=== PATIENT | female | born 1995 | race Caucasian/White ===

== ENCOUNTER → 2021-09-27 09:45 | Outpatient (BNVA) | payer OTHER, SELFPAY | PROVIDERS: PCP Internal Medicine; Visit Provider Nurse Practitioner Family | DX: M79.18 Myalgia, other site (principal); M47.816 Spondylosis without myelopathy or radiculopathy, lumbar region; M53.3 Sacrococcygeal disorders, not elsewhere classified; M54.2 Cervicalgia | CPT/HCPCS: 99202 ==

== ENCOUNTER → 2021-10-19 10:43 | Outpatient (BNVA) | payer OTHER, SELFPAY | PROVIDERS: PCP Internal Medicine; Visit Provider Nurse Practitioner Family | DX: M79.18 Myalgia, other site (principal); M47.816 Spondylosis without myelopathy or radiculopathy, lumbar region; M53.3 Sacrococcygeal disorders, not elsewhere classified; M54.2 Cervicalgia | CPT/HCPCS: 20553; 99212 ==

== ENCOUNTER → 2021-10-21 13:35 | Outpatient (BNVA) | payer OTHER, SELFPAY | PROVIDERS: Visit Provider Nurse Practitioner Family ==

== ENCOUNTER 2021-11-08 06:03 | Outpatient (REF) | payer OTHER, SELFPAY ==
--- NOTE | ~2021-11-08 | FL_ITS ---
EXAMINATION: XR FLUOROSCOPY WITH IMAGES CLINICAL INFORMATION: Sacrococcygeal disorders, not elsewhere classified. COMPARISON: None. TECHNIQUE: Fluoroscopy performed by Camille Mercado NP Fluoroscopy time: 0.2 minutes DAP: 1.2 Gycm2 Images: 2 FINDINGS: Imaging was performed during SI joint injection. [place] are seen in the region of the SI joint with contrast around the tip of the needle in the periarticular space. Based upon the provided images, I do not see spread of contrast through the joint. FL/FL guidance in treatment room IMPRESSION: Fluoroscopic and spot film guidance during SI joint injection as described above.
== END 2021-11-08 06:04 | disposition home or self-care (01) ==
LOC: HO.RADIR 06:03
PROVIDERS: Visit Provider Anesthesiology
DX: M53.3 Sacrococcygeal disorders, not elsewhere classified (principal); M47.816 Spondylosis without myelopathy or radiculopathy, lumbar region; M79.18 Myalgia, other site
CPT/HCPCS: 27096; J3300; Q9967

== ENCOUNTER → 2024-04-28 14:05 | Outpatient (BNVA) | payer SELFPAY | PROVIDERS: PCP Physician Assistant | DX: Z02.83 Encounter for blood-alcohol and blood-drug test (principal) ==

== ENCOUNTER 2025-05-28 13:46 | Outpatient (AMB) | payer OTHER, SELFPAY ==
[2025-05-28 14:00] VITALS: BP 149/93; PULSE 81; RESP 18; O2SAT 100; BMI 33.8
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
--- OUTSIDE RECORDS SUMMARY | 2025-05-28 15:03 | XMS_ITS | Clinical Summary ---
Author Organization [address] Address [address] [place] [phone] Phone Care Team Providers Care Prototype Machinist Name Role Phone Mayo Marley MD Primary Care Pr ovider Allergies Active Allergy Reactions Criticality Noted Date Comments Diphth,Pertus(Acell),Teta nus 05/20/2024 Rash and a lump over injection site Medications ferrous sulfate 325 mg (65 mg elemental iron) tablet Take 1 tablet by mouth daily. X 1 week then increase bid with meals 022 Active levonorgestreL (MIRENA) 21 mcg/24 hr (8 yrs) 52 mg IUD 1 Each by Intrauterine route Once. 021 2025 Active montelukast (SINGULAIR) 10 mg tablet Take 1 Tablet by mouth at bedtime. 023 Active guanFACINE (TENEX) 1 mg tablet Take 1 tablet (1 mg total) by mouth at bedtime. Active amphetamine-dextr oamphetamine (AdderalL) 10 mg tablet Take 1 tablet (10 mg total) by mouth 2 (two) times a day. Active albuterol HFA (PROAIR HFA ; PROVENTIL HFA ; VENTOLIN HFA) 90 mcg/actuation inhalerIndication s:Mild intermittent asthma without complication Inhale 2 puffs by mouth every 4 (four) hours if needed for wheezing or shortness of breath (cough). 6.7 g 2 025 Active levothyroxine (SYNTHROID, LEVOTHROID) 25 mcg tabletIndications :Other specified hypothyroidism Take 1 tablet (25 mcg total) by mouth 1 (one) time each day before breakfast. 90 tablet 1 025 Active SUMAtriptan (IMITREX) 50 mg tablet Take 1 tablet (50 mg total) by mouth 1 (one) time if needed for migraine. May repeat dose once in 2 hours if no relief. Do not exceed 2 doses in 24 hours. 12 tablet 1 025 Active cyclobenzaprine (FLEXERIL) 5 mg tablet Take 1 tablet (5 mg total) by mouth at bedtime as needed for muscle spasms. 30 tablet 025 2024 Active meloxicam (MOBIC) 7.5 mg tablet Take 1 tablet (7.5 mg total) by mouth 1 (one) time each day if needed for moderate pain. 30 each 025 2024 Active omeprazole (PriLOSEC) [address] capsule Take 1 capsule (40 mg total) by mouth 1 (one) time each day. Do not crush or chew. 90 capsule 1 025 Active omeprazole (PriLOSEC) [address] capsule Take 1 Capsule by mouth every morning (before breakfast). 023 2024 Discontinued ondansetron ODT (ZOFRAN-ODT) 4 mg disintegrating tablet Take 1 tablet (4 mg total) by mouth every 8 (eight) hours if needed for nausea. for nausea 20 tablet 1 025 2024 Active Problems Problem Noted Date Diagnosed Date Asthma 01/08/2025 Other specified attention de ficit hyperactivity disorder (ADHD) 01/08/2025 Migraine without status migrainosus, not intract able 07/12/2023 Hypothyroidism 04/06/2021 Iron deficiency anemia due to chronic blood loss 12/30/2020 Inflamed external hemorrhoid 11/22/2020 Overview (06/25/2024): Last Assessment & Plan: Treat constipation with Colace twice daily, Miralax- 1-2 times per day until soft stools To take down inflammation- Milk of magnesium- soak cotton balls and apply to the area twice daily, Soak in warm water and baking soda twice daily, Take ibuprofen or Tylenol Tucks pads to the area to soothe Return if not improving or worsening to ensure no abscess underlying. Heavy menses due to IUD ([facility]/HCC V24) 11/18/2020 Overview (06/25/2024): Symptomatic anemia Hgb 11/16 6.7 Transfused 1u [facility]BCs at Infusion Center 11/17 Insomnia 12/08/2015 Anxiety 11/21/2014 Encounters Date Type Department Care Team Description 05/01/2025 2:00 PM EDT Office Visit Adult Medicine [address] [phone] Mayo Marley MD Left wrist pain (Primary Dx); Neuropathy; Chronic midline low back pain without sciatica 04/27/2025 Telephone Adult Medicine [address] [phone] Mayo Marley MD 04/24/2025 Telephone Adult Medicine [address] [phone] Mayo Marley MD from Last 3 Months Immunizations Name Administration Dates Next Due DTaP (Infanrix) 6wks to less than 7yo ,01/22/1995,03/24/1994,12/23,1993 [id number]-MDL-EDV (Pentacel) 2mo to less than 5yo 12/23/1997,03/24/1995,03/24/1994,10/25 HPV, Quadrivalent 05/03/2012, 8,07/02/2007,04/23 Hepatitis B (Zhxiyuc-K-Jqpkl , Recombivax HB-Adult) 19yo and older 08/06/2024,03/05/2024,01/30/2024,07/13,05/03/2012 Hepatitis B Pediatric (Enger ix B; Recombivax HB) to less than 20 yo 03/24/1994,1993,1993 IPV Inactivated polio (Ipol) 6wks and older 03/24/1998,01/22/1995,03/24/1994,12/23,1993 Influenza Quadravalent, MDCK , 0.5ml, preservative free (Flucelvax) 6mo and older 06/11/2023,06/23/2020,10/22/2019 Influenza trivalent, with pr eservative (Fluzone; Afluria) 6mo and older 2014 MMR, measles mumps and rubel la Live (Priorix; M-M-R II) 12mo and older 07/13/2016,05/03/2012,03/24/1998,11/22 Meningococcal MCV4P 10/28/2008 PPD Test 11/11/2014 Pfizer (ages 12 & older) Biv alent, COVID-19 01/16/2024 Td Tetanus diptheria (Tdvax) 7yo and older 10/22/2019 Tdap Tetanus diptheria acell ular pertussis (Boostrix; Adacel) 7yo and older 05/14/2024,10/28/2008 Varicella live (Varivax) 12m o and older 02/10/2011,03/24/1997 Surgical History Surgery Date Site/Laterality Comments WISDOM TOOTH EXTRACTION PROCEDURE: HISTORICAL WISDOM TEETH EXTRACTION Medical History Medical History Date Comments Back pain DX:Back pain Anxiety 11/21/2014 DX:Anxiety Hypothyroid DX:Hypothyroid Anemia DX:Anemia Family History Medical History Relation Name Comments Diabetes Maternal Grandmother ovarian cancer Asthma Mother ? cancer Diabetes Paternal Grandmother Breast cancer Neg Hx Cervical cancer Neg Hx Uterine cancer Neg Hx Relation Name Status Comments Brother 1 Alive Brother 2 Alive Father Alive Maternal Grandmother Mother Alive Paternal Grandmother Sister 1 Alive sever 1/2 sibs Sister 2 Alive Social History Tobacco Use Types Packs/Day Years Used Date Smoking Tobacco: Never Smokeless Tobacco: Never Tobacco Cessation:Counseling Given: Not Answered Alcohol Use Standard Drinks/Week Comments Yes 0 (1 standard drink = 0.6 oz pur e alcohol) Housing Instability Answer Date Recorde d Are you worried that in the next 2 months you may not have stable housing? Patient declined 01/08/2025 Food Access & Nutrition Answer Date Rec orded Do you have access to a vari ety of food including fruits and vegetables? Patient declined 01/08/2025 Health Literacy Answer Date Recorded How often do you need to hav e someone help you when you read instructions, pamphlets, or other written material from your doctor or pharmacy? Patient declined 01/08/2025 Caregiver: How often do you need to have someone help you when you read instructions, pamphlets, or other written material from your doctor or pharmacy? Not on file 025 Financial Risk Answer Date Recorded How hard is it for you to pa y for the very basics like food, housing, medical care, and air conditioning / heating? Patient declined 01/08/2025 Transportation Answer Date Recorded Has the lack of transportati on kept you from meetings, work, or from getting things needed for daily living? Patient declined 01/08/2025 Has the lack of transportati on kept you from medical appointments or from getting medications? Patient declined 01/08/2025 Social Isolation Answer Date Recorded How often do you feel lonely or isolated from those around you? Patient declined 01/08/2025 Food Risk Answer Date Recorded Within the past 12 months we worried whether our food would run out before we got money to buy more. Never true 01/08/2025 Within the past 12 months th e food we bought just didn't last and we didn't have money to get more. Never true 01/08/2025 Dependent Care Answer Date Recorded Do you need help finding or paying for care for your loved ones. For example, child protection specialist or elderly care for an older adult? Patient declined 01/08/2025 Education Answer Date Recorded Do you think completing more education or training, like finishing a GED, going to college, or learning a trade, would be helpful for you? Patient declined 01/08/2025 Employment and Income Answer Date Recor ded During the last four weeks, have you been actively looking for work? Patient declined 01/08/2025 Living Situation Answer Date Recorded What is your living situation? 0 01/08/2025 Comments Unknown Sex and Gender Information Value Date Recorded Sex Assigned at Not on file Legal Sex Female 4:54 AM EST Gender Identity Not on file Sexual Orientation Not on file Obstetrics History Last Filed Vital Signs Vital Sign Reading Time Taken Comments Blood Pressure 103/72 05/01/2025 2:19 PM EDT Pulse 82 05/01/2025 2:19 PM EDT Temperature 37.1 C (98.7 F) 05/01/2025 2:19 PM EDT Respiratory Rate 18 05/01/2025 2:19 PM EDT Oxygen Saturation 98% 01/08/2025 12:27 PM EDT Inhaled Oxygen Concentration - - Weight 94.3 kg (208 lb) 05/01/2025 2:19 PM EDT Height 165.1 cm (5' 5 ) 05/01/2025 2:19 PM EDT Body Mass Index 34.61 05/01/2025 2:19 PM EDT Plan of Treatment Upcoming Encounters Date Type Department Care Team (Late st Contact Info) Description 07/14/2025 1:15 PM EDT Office Visit Adult Medicine [address] [phone] Lani Harrison PA [address] [place] [address] Health Maintenance Due Date Last Done Comments Pneumococcal Vaccine: Pediatrics (0 to 5 Years) and At-Risk Patients (6 to 49 Years) (1 of 2 - PCV) 2012 COVID-19 Vaccine (4 - season) 2025 01/16/2024, 09/28/2021, 09/07/2021 Influenza Vaccine (#1) 2025 , 06/11/2023, 06/23/2020, Additional history exists Social Influencers of Health Screening 01/08/2026 01/08/2025 Cervical Cancer Screening: HPV 05/27/2029 05/27/2024 Cholesterol Screening (Lipid Panel) 01/08/2030 01/08/2025, 06/11/2023 DTaP,Tdap,and Td Vaccines (10 - Td or Tdap) 05/14/2034 05/14/2024, 01/17/2020, 10/22/2019, Additional history exists HIB Vaccines Completed 12/23/1997, 09/1997, 03/24/1995, Additional history exists IPV Vaccines Completed 03/24/1998, 09/1997, 03/24/1995, Additional history exists Meningococcal ACWY Vaccine Aged Out 10/28/2008 N o longer eligible based on patient's age to complete this topic Varicella Vaccines Completed 02/10/2011, 03/24/1997 HPV Vaccines Completed 05/03/2012, 10/26, 07/02/2007, Additional history exists MMR Vaccines Completed 07/13/2016, 04/24, 03/24/1998, Additional history exists HIV Screening Completed 04/05/2021 Hepatitis C Screening Completed 04/05/2021 Hepatitis B Vaccines Completed 08/06/2024, 03/05/2024, 01/30/2024, Additional history exists Depression Screening Completed 01/08/2025 Hepatitis A Vaccines Aged Out No long er eligible based on patient's age to complete this topic Meningococcal B Vaccine Aged Out No l onger eligible based on patient's age to complete this topic RSV Immunization Patients Under 20 months Aged Out No longer eligible based on patient's age to complete this topic Procedures Procedure Name Priority Date/Time Associated Diagnosis Comments CREATINE KINASE Routine 05/13/2025 3:23 PM EDT Elevated CK INTERFERON GAMMA INTERPRETATION Routine 05/01/2025 3:30 PM EDT Screening-pulmonary TB INTERFERON GAMMA ANTIGEN 2 Routine 05/01/2025 3:30 PM EDT Screening-pulmonary TB INTERFERON GAMMA ANTIGEN 1 Routine 05/01/2025 3:30 PM EDT Screening-pulmonary TB INTERFERON GAMMA MITOGEN Routine 05/01/2025 3:30 PM EDT Screening-pulmonary TB INTERFERON GAMMA NIL Routine 05/01/2025 3:30 PM EDT Screening-pulmonary TB INTERFERON GAMMA FOR TB, QUALITATIVE Routine 05/01/2025 3:30 PM EDT Screening-pulmonary TB RHEUMATOID FACTOR Routine 05/01/2025 3:3 0 PM EDT Left wrist pain CYCLIC CITRULLINATED PEPTIDE, IGG AND IGA Routine 05/01/2025 3:30 PM EDT Left wrist pain MAGNESIUM Routine 05/01/2025 3:30 PM EDT Left wrist pain CREATINE KINASE Routine 05/01/2025 3:30 PM EDT Left wrist pain VITAMIN B12 Routine 05/01/2025 3:30 PM EDT Neuropathy HELICOBACTER PYLORI BREATH TEST Routine 05/01/2025 3:30 PM EDT Gastroesophageal reflux disease, unspecified whether esophagitis present HEMOGLOBIN A1C Routine 05/01/2025 3:30 PM EDT Neuropathy LIPID PANEL WITH REFLEX TO DIRECT LDL Routine 01/08/2025 1:17 PM EDT Annual physical exam HM HPV Routine 05/27/2024 HM HEPATITIS C SCREENING Routine 04/05/2021 HM HIV SCREENING Routine 04/05/2021 from Last 3 Months or Most Recently Relevant to Health Maintenance Results * Creatine kinase (05/13/2025 3:23 PM EDT) Only the most recent of2 resultswithin the time period is included. Total CK 101 22 - 269 unit/L LAB CHEMISTRY METHOD 05/13/2025 7:04 PM EDT [facility] Blood Venous blood specimen / Unknown Venipuncture / Unknown 05/13/2025 3:23 PM EDT 05/13/2025 3:23 PM EDT us Mayo Marley MD LAB BLOOD ORDERA BLES Final Result [facility] [address] [place] [address], [place] [phone] * Interferon gamma interpretation (05/01/2025 3:30 PM EDT) [facility] Signature Quantiferon Plus Interpretation Negative Negative LAB CHEMISTRY METHOD 05/03/2025 11:48 AM EDT [facility] Blood Venous blood specimen / Unknown Venipuncture / Unknown 05/01/2025 3:30 PM EDT 05/01/2025 3:30 PM EDT Lani CALDERON LAB BLOOD ORDERABLES Final Re sult [facility] [address] [place] [address], [place] [phone] * Interferon gamma antigen 2 (05/01/2025 3:30 PM EDT) Blood Venous blood specimen / Unknown Venipuncture / Unknown 05/01/2025 3:30 PM EDT 05/01/2025 3:30 PM EDT us Lani CALDERON LAB BLOOD ORDERABLES Final Re sult Performing Organization Address City/Va Hospital/ZIP Co de Phone Number [facility] [address] [place] [address], [place] [phone] * Interferon gamma antigen 1 (05/01/2025 3:30 PM EDT) Blood Venous blood specimen / Unknown Venipuncture / Unknown 05/01/2025 3:30 PM EDT 05/01/2025 3:30 PM EDT us Lani CALDERON LAB BLOOD ORDERABLES Final Re sult [facility] [address] [place] [address], [place] [phone] * Interferon gamma mitogen (05/01/2025 3:30 PM EDT) Blood Venous blood specimen / Unknown Venipuncture / Unknown 05/01/2025 3:30 PM EDT 05/01/2025 3:30 PM EDT Lani CALDERON LAB BLOOD ORDERABLES Final Re sult Performing Organization Address [facility] [place] Co de Phone Number [facility] [address] [place] [address], [place] [phone] * Interferon gamma NIL (05/01/2025 3:30 PM EDT) Blood Venous blood specimen / Unknown Venipuncture / Unknown 05/01/2025 3:30 PM EDT 05/01/2025 3:30 PM EDT Lani CALDERON LAB BLOOD ORDERABLES Final Re sult Performing Organization Address [facility] de Phone Number [facility] [address] [place] [address], [place] [phone] * Cyclic citrullinated peptide, IgG and IgA (05/01/2025 3:30 PM EDT) [facility] CCP AB Quant 10 <20 Units LAB CHEMISTRY METHOD 05/05/2025 11:46 AM EDT [facility] Cyclic Citrullinated Peptide (CCP) Antibody Negative Negative LAB CHEMISTRY METHOD 05/05/2025 11:46 AM EDT [facility] Blood Venous blood specimen / Unknown Venipuncture / Unknown 05/01/2025 3:30 PM EDT 05/01/2025 3:30 PM EDT Mayo Marley MD LAB BLOOD ORDERA BLES Final Result Performing Organization Address [facility] Co de Phone Number [facility] [address] [place] [address], [place] [phone] * Helicobacter pylori breath test (05/01/2025 3:30 PM EDT) Pathologist [facility] H Pylori Breath Test Negative Negative LAB CHEMISTRY METHOD 05/02/2025 8:41 AM EDT [facility] Breath Oral cavity structure / Unknown Non-blood Collection / Unknown 05/01/2025 3:30 PM EDT 05/01/2025 3:30 PM EDT Lani CALDERON LAB BODY FLUIDS AND STOOLS OR DERABLES Final Result Performing Organization Address [facility] [place]/[facility]/ZIP Co de Phone Number [facility] [address] [place] [address], [place] [phone] * Rheumatoid factor (05/01/2025 3:30 PM EDT) Rheumatoid Factor <10.0 <15.0 I Unit/mL LAB CHEMISTRY METHOD 05/01/2025 7:00 PM EDT [facility] Blood Venous blood specimen / Unknown Venipuncture / Unknown 05/01/2025 3:30 PM EDT 05/01/2025 3:30 PM EDT Mayo Marley MD LAB BLOOD ORDERA BLES Final Result Performing Organization Address [facility] de Phone Number [facility] [address] [place] [address], [place] [phone] * Magnesium (05/01/2025 3:30 PM EDT) Pathologist [facility] Magnesium 2.2 1.9 - 2.6 mg/dL LAB CHEMISTRY METHOD 05/01/2025 7:00 PM EDT [facility] Blood Venous blood specimen / Unknown Venipuncture / Unknown 05/01/2025 3:30 PM EDT 05/01/2025 3:30 PM EDT Mayo Marley MD LAB BLOOD ORDERA BLES Final Result Performing Organization Address [facility] [place]/[facility]/ZIP Co de Phone Number [facility] [address] [place] [address], [place] [phone] * Hemoglobin A1c (05/01/2025 3:30 PM EDT) [facility] Hemoglobin A1C 5.3 <6.5 % LAB CHEMISTRY METHOD 05/01/2025 9:50 PM EDT [facility] Mean Bld Glu Estim. 105 mg/dL LAB CHEMISTRY METHOD 05/01/2025 9:50 PM EDT [facility] Blood Venous blood specimen / Unknown Venipuncture / Unknown 05/01/2025 3:30 PM EDT 05/01/2025 3:30 PM EDT Mayo Marley MD LAB BLOOD ORDERA BLES Final Result Performing Organization Address City/[facility] Hospital/ZIP Co de Phone Number [facility] [address] [place] [address], [place] [phone] * Vitamin B12 (05/01/2025 3:30 PM EDT) [facility] Vitamin B-12 405 250 - 900 pcg/mL LAB CHEMISTRY METHOD 05/01/2025 7:24 PM EDT [facility] Blood Venous blood specimen / Unknown Venipuncture / Unknown 05/01/2025 3:30 PM EDT 05/01/2025 3:30 PM EDT Mayo Marley MD LAB BLOOD ORDERA BLES Final Result [facility] [address] [place] [address], [place] [phone] * Lipid panel with reflex to direct LDL (01/08/2025 1:17 PM EDT) [facility] Cholesterol 164 0 - 200 mg/dL LAB CHEMISTRY METHOD 01/08/2025 5:43 PM EDT [facility] Triglycerides 64 0 - 150 mg/dL LAB CHEMISTRY METHOD 01/08/2025 5:43 PM EDT [facility] HDL 53 >=40 mg/dL LAB CHEMISTRY METHOD 01/08/2025 5:43 PM EDT [facility] LDL Calculated 98 0 - 100 mg/dL LAB CHEMISTRY METHOD 01/08/2025 5:43 PM EDT [facility] VLDL Cholesterol Nakul 12.8 mg/dL LAB CHEMISTRY METHOD 01/08/2025 5:43 PM EDT [facility] Non HDL Chol. (LDL+VLDL) 111 <145 mg/dL LAB CHEMISTRY METHOD 01/08/2025 5:43 PM EDT [facility] Chol/HDL Ratio 3.1 0.0 - 4.4 LAB CHEMISTRY METHOD 01/08/2025 5:43 PM EDT [facility] Blood Venous blood specimen / Unknown Venipuncture / Unknown 01/08/2025 1:17 PM EDT 01/08/2025 1:17 PM EDT Lani CALDERON LAB BLOOD ORDERABLES Final Re sult [facility] [address] [place] [address], [place] [phone] * Cervical Cancer Screening: HPV (05/27/2024) [facility] Cervical Cancer Screening: HPV positive,a bstracted Historical Provider HEALTH MAINTENANCE Final Result * HIV Screening (04/05/2021) [facility] HIV Screening abstracted Historical Provider HEALTH MAINTENANCE Final Result * Hepatitis C Screening (04/05/2021) [facility] Hepatitis C Screening abstracted Historical Provider HEALTH MAINTENANCE Final Result from Last 3 Months or Most Recently Relevant to Health Maintenance Insurance [facility] Care Teams Prototype Machinist Relationship Specialty Start Date End Date Mayo Marley MD [address] [facility] [place] PCP - General Internal Medicine 05/09/22
--- OUTSIDE RECORDS SUMMARY | 2025-05-28 15:03 | XMS_ITS ---
Author Name [facility] Organization Unknown Care Team Organization Name Specialty Phone Email Start Date End Da te [facility] RACHID GRAHAM [email or web address] 07/24/2023 4 [facility] Aiyana Wilsonmed DO Primary Care 11/29/202204/24 4 [facility] NULL Primary Care 08/01/2022 4
--- OUTSIDE RECORDS SUMMARY | 2025-05-28 15:03 | XMS_ITS | Clinical Summary ---
Author Organization [facility] Address [address] [place] [address] Care Team Providers Care Marine Electrician Name Role Phone Mayo Marley MD Primary Care Pr ovider Allergies No known active allergies Medications Medication Sig Dispensed Refills Start Date End Date Status levothyroxine (SYNTHROID) tablet 25 mcg Take 1 tablet (25 mcg total) by mouth every morning on an empty stomach. 0 Active naproxen (NAPROSYN) 500 MG tablet Take 1 tablet (500 mg total) by mouth 2 (two) times a day with meals. 0 Active omeprazole (PriLOSEC) 20 MG capsule Take 1 capsule (20 mg total) by mouth daily. 0 Active levonorgestrel (MIRENA) 20 MCG/DAY IUD 1 each by Intrauterine route once. 0 Active ferrous sulfate 325 (65 FE) MG tablet Take 1 tablet (325 mg total) by mouth every morning with breakfast. 0 Active Active Problems Problem Noted Date Diagnosed Date Iron deficiency anemia due to chronic blood loss 12/04/2022 Social History Tobacco Use Types Packs/Day Years Used Date Smoking Tobacco: Never Assessed Sex and Gender Information Value Date Recorded Sex Assigned at Not on file Gender Identity Not on file Sexual Orientation Not on file Job Start Date Occupation Industry Not on file Not on file Not on file Last Filed Vital Signs Vital Sign Reading Time Taken Comments Blood Pressure 126/79 12/04/2022 11:35 AM EDT Pulse 79 12/04/2022 11:35 AM EDT Temperature 36.8 C (98.2 F) 12/04/2022 11:35 AM EDT Respiratory Rate - - Oxygen Saturation 100% 12/04/2022 11:35 AM EDT Inhaled Oxygen Concentration - - Weight 93.3 kg (205 lb 9.6 oz) 12/04/2022 11:35 AM EDT Height 165.1 cm (5' 5 ) 12/04/2022 11:35 AM EDT Body Mass Index 34.21 12/04/2022 11:35 AM EDT Plan of Treatment Health Maintenance Due Date Last Done Comments Hepatitis C Screening 1993 COVID-19 Vaccine (#1) 02/08/1994 Depression Screening 2005 Preventative Health Evaluation 2011 Cervical Cancer Screening (Pap Smear) 2014 Influenza Vaccine (#1) 2025 0, 10/22/2019, 2014 DTap / Tdap / Td (8 - Td or Tdap) 10/22/2029 10/22/2019, 10/28/2008, 03/24/1998, Additional history exists Hepatitis B Vaccines Completed 03/24/1994, 1993, 1993 Pneumococcal Vaccine Aged Out No long er eligible based on patient's age to complete this topic RSV Ped < 20 months Aged Out No longe r eligible based on patient's age to complete this topic Care Teams Marine Electrician Relationship Specialty Start Date End Date Mayo Marley MD [address] [place] [address] PCP - General 07/05/22
--- OUTSIDE RECORDS SUMMARY | 2025-05-28 15:03 | XMS_ITS | Clinical Summary ---
Author Organization [employer] Address [address] [facility] [address] [place] [address] Care Team Providers Care Regional Director Of Finance Name Role Phone Unavailable Primary Care Provider Unavailabl e Social History Tobacco Use Types Packs/Day Years Used Date Smoking Tobacco: Never Assessed Comments Unknown Sex and Gender Information Value Date Recorded Sex Assigned at Female 07/24/2022 10:15 AM EDT Legal Sex Female 10:15 AM EDT Gender Identity Not on file Sexual Orientation Not on file Plan of Treatment Health Maintenance Due Date Last Done Comments Depression Screening 1993 Disability Screening 1993 Alcohol/Substance Use Screening 2005 Tobacco Screening 2005 Family Planning (PISQ) 2008 HPV Vaccines (1 - 3-dose series) 2008 DTaP/Tdap/Td Vaccines (1 - Tdap) 2012 Hepatitis B Vaccines (1 of 3 - 19+ 3-dose series) 2012 Pap Smear 2014 Cervical Cancer Screening 2023 HPV/Cotest 2023 COVID-19 Vaccine (1 - 2023-2 5 season) 2024 Influenza Vaccine (#1) 2025 Zoster Vaccines (1 of 2) 2043 RSV Patients and Pa tients Aged 60 years or older (1 - 1-dose 75+ series) 2068 HIB Vaccines Aged Out No longer eligi ble based on patient's age to complete this topic Hepatitis A Vaccines Aged Out No long er eligible based on patient's age to complete this topic IPV Vaccines Aged Out No longer eligi ble based on patient's age to complete this topic Meningococcal B Vaccine Aged Out No l onger eligible based on patient's age to complete this topic Meningococcal Vaccine Aged Out No tiffani brandon eligible based on patient's age to complete this topic Pneumococcal Vaccine: Pediat rics (0 to 5 Years) and At-Risk Patients (6 to 49) Years Aged Out No longer eligible b ased on patient's age to complete this topic RSV under 20 months Aged Out No longe r eligible based on patient's age to complete this topic Rotavirus Vaccines Aged Out No longer eligible based on patient's age to complete this topic
--- OUTSIDE RECORDS SUMMARY | 2025-05-28 15:03 | XMS_ITS | Encounter Summary ---
Author Organization [employer] [facility] Address [address] [facility] [address] [place] [address] Care Team Providers Care Trampoline Team Coach Name Role Phone Unavailable Primary Care Provider Unavailabl e Encounter Details Date Type Department Care Team (Latest Contact Info) Description 11/18/2019 Abstract C CONVERSIONS Dental, Provider, DDS Social History Tobacco Use Types Packs/Day Years Used Date Smoking Tobacco: Never Assessed Comments Unknown Sex and Gender Information Value Date Recorded Sex Assigned at Female 07/24/2022 10:15 AM EDT Legal Sex Female 10:15 AM EDT Gender Identity Not on file Sexual Orientation Not on file documented as of this encounter Plan of Treatment Not on file documented as of this encounter Visit Diagnoses Not on filedocumented in this encounter
== END 2025-05-28 14:40 | disposition home or self-care (01) ==
LOC: HO.PMC 13:47
PROVIDERS: PCP Family Medicine; Referring Provider Family Medicine; Visit Provider Anesthesiology
DX: M47.812 Spondylosis without myelopathy or radiculopathy, cervical region (principal); M46.1 Sacroiliitis, not elsewhere classified; M99.04 Segmental and somatic dysfunction of sacral region; M54.2 Cervicalgia
CPT/HCPCS: 99203

== ENCOUNTER → 2025-05-28 13:46 | Outpatient (BNVA) | payer OTHER, SELFPAY | PROVIDERS: PCP Family Medicine; Referring Provider Family Medicine; Visit Provider Anesthesiology | DX: M54.2 Cervicalgia (principal); M47.812 Spondylosis without myelopathy or radiculopathy, cervical region; M46.1 Sacroiliitis, not elsewhere classified; M99.04 Segmental and somatic dysfunction of sacral region | CPT/HCPCS: 99202 ==

== ENCOUNTER 2025-06-16 08:54 | Outpatient (AMB) | payer OTHER, SELFPAY ==
[2025-06-16 09:04] VITALS: BP 124/78; PULSE 76; RESP 16; O2SAT 98; BMI 34.1
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
--- OUTSIDE RECORDS SUMMARY | 2025-06-16 10:09 | XMS_ITS | Clinical Summary ---
Author Organization [address] Address [address] [place] [phone] Phone Care Team Providers Care Nurse Ldr Name Role Phone Mayo Marley MD Primary [...] 24 hours. 12 tablet 1 025 Active omeprazole (PriLOSEC) [address] capsule Take 1 capsule (40 mg total) by mouth 1 (one) time each day. Do not crush or chew. 90 capsule 1 025 Active meloxicam (MOBIC) 7.5 mg tablet TAKE 1 TABLET (7.5 MG TOTAL) BY MOUTH 1 (ONE) TIME EACH DAY IF NEEDED FOR MODERATE PAIN. 30 tablet 025 2024 Active cyclobenzaprine (FLEXERIL) 5 mg tablet TAKE 1 TABLET BY MOUTH AT BEDTIME NEEDED FOR MUSCLE SPASMS. 30 tablet 025 Active cyclobenzaprine (FLEXERIL) 5 mg tablet Take 1 tablet (5 mg total) by mouth at bedtime as needed for muscle spasms. 30 tablet 025 2024 Discontinued meloxicam (MOBIC) 7.5 mg tablet Take 1 tablet (7.5 mg total) by mouth 1 (one) time each day if needed for moderate pain. 30 each 025 2024 Discontinued Active Problems Problem Noted Date Diagnosed Date [...] abscess underlying. Heavy menses due to IUD ([facility] V24) 11/18/2020 Overview (06/25/2024): Symptomatic anemia Hgb 11/16 6.7 Transfused 1u PRBCs at Infusion Center 11/17 Insomnia 12/08/2015 Anxiety 11/21/2014 Encounters Date Type Department Care Team Description 06/09/2025 Telephone Adult Medicine [address] [phone] Mayo Marley MD 05/01/2025 2:00 PM EDT Office Visit Adult Medicine [address] [phone] Mayo Marley MD Left wrist pain (Primary Dx); Neuropathy; Chronic midline low back pain without sciatica 04/27/2025 Telephone Adult Medicine [address] [phone] Mayo Marley MD 04/24/2025 Telephone Adult Medicine [address] [phone] Mayo aMrley MD from Last 3 Months Immunizations Name Administration Dates Next Due DTaP (Infanrix) 6wks to less than 7yo ,01/22/1995,03/24/1994,12/23,1993 BBaO-CIS-VGS (Pentacel) 2mo to less than 5yo 12/23/1997,03/24/1995,03/24/1994,10/25 HPV, Quadrivalent 05/03/2012, 8,07/02/2007,04/23 Hepatitis B (Vucxhkb-G-Uaphz , Recombivax HB-Adult) 19yo and older 08/06/2024,03/05/2024,01/30/2024,07/13,05/03/2012 [...] for your loved ones. For example, child life therapist or elderly care for an older adult? [...] 1:15 PM EDT Office Visit Adult Medicine [address] [phone] Lani Harrison PA [address] [place] [address] Health Maintenance Due Date Last Done Comments Pneumococcal Vaccine: Pediatrics (0 to 5 Years) and At-Risk Patients (6 to 49 Years) (1 of 2 - PCV) 2012 COVID-19 Vaccine ( season) 2025 01/16/2024, 09/28/2021, 09/07/2021 Influenza Vaccine (#1) 2025 , 06/11/2023, 06/23/2020, Additional history exists Social Influencers of Health Screening 01/08/2026 01/08/2025 Cervical Cancer Screening: HPV 05/27/2029 05/27/2024 Cholesterol Screening (Lipid Panel) 01/08/2030 01/08/2025, 06/11/2023 DTaP,Tdap,and Td Vaccines (10 - Td or Tdap) 05/14/2034 05/14/2024, 01/17/2020, 10/22/2019, Additional history exists RSV Immunization Adult Patients (1 - 1-dose 75+ series) 2068 HIB Vaccines Completed 12/23/1997, 09/1997, 03/24/1995, Additional [...] Routine 05/13/2025 3:23 PM EDT Elevated CK MYOSITIS MARKER PANEL 3 Routine 05/13/2025 3:23 PM EDT Elevated CK [...] Recently Relevant to Health Maintenance Results * (ABNORMAL) Myositis panel 3 (05/13/2025 3:23 PM EDT) Nimo-1 Ab <20 <20 Units 06/04/2025 8:[address] [facility] [address]-7 Ab Negative Negative 06/04/2025 8:10 PM EDT [facility] Comment: This test was developed and its performance characteristics determined by [facility]. It has not been cleared or approved by the Food and Drug Administration. PL-12 Ab Negative Negative 06/04/2025 8:10 PM EDT [facility] Comment: This test was developed and its performance characteristics determined by [facility]. It has not been cleared or approved by the Food and Drug Administration. Ej Ab Negative Negative 06/04/2025 8:10 PM EDT [facility] Comment: This test was developed and its performance characteristics determined by [facility]. It has not been cleared or approved by the Food and Drug Administration. Oj Ab Negative Negative 06/04/2025 8:10 PM EDT [facility] Comment: This test was developed and its performance characteristics determined by [facility]. It has not been cleared or approved by the Food and Drug Administration. SRP Ab Negative Negative 06/04/2025 8:10 PM EDT [facility] Comment: This test was developed and its performance characteristics determined by [facility]. It has not been cleared or approved by the Food and Drug Administration. MO-2 Ab Weak Positive(A) Negative 06/04/2025 8:10 PM EDT [facility] Comment: This test was developed and its performance characteristics determined by [facility]. It has not been cleared or approved by the Food and Drug Administration. TIF1 Gamma (P155/140) Ab <20 <20 Units 06/04/2025 8:10 PM EDT [facility] Comment: This test was developed and its performance characteristics determined by [facility]. It has not been cleared or approved by the Food and Drug Administration. MDA-5 (P140)(CADM-140) Ab <20 <20 Units 06/04/2025 8:10 PM EDT [facility] Comment: This test was developed and its performance characteristics determined by [facility]. It has not been cleared or approved by the Food and Drug Administration. NXP-2 (P140) Ab <20 <20 Units 8:10 PM EDT [facility] Comment: This test was developed and its performance characteristics determined by [facility]. It has not been cleared or approved by the Food and Drug Administration. Anti-PM/Scl-100 Ab <20 <20 Units 2024 8:10 PM EDT [facility] Comment: This test was developed and its performance characteristics determined by [facility]. It has not been cleared or approved by the Food and Drug Administration. U2 snRNP Ab Negative Negative 06/04/2025 8:10 PM EDT [facility] Comment: This test was developed and its performance characteristics determined by [facility]. It has not been cleared or approved by the Food and Drug Administration. Anti-U1-JAVA SOFTWARE ENGINEER Ab <20 <20 Units 06/04/2025 8:10 PM EDT [facility] Ku Ab Negative Negative 06/04/2025 8:10 PM EDT [facility] Comment: This test was developed and its performance characteristics determined by [facility]. It has not been cleared or approved by the Food and Drug Administration. Anti-SS-A 52 kD Ab, IgG <20 <20 Units 06/04/2025 8:10 PM EDT [facility] Comment: This test was developed and its performance characteristics determined by [facility]. It has not been cleared or approved by the Food and Drug Administration. Fibrillarin (U3 JAVA SOFTWARE ENGINEER) Ab Negative Negative 06/04/2025 8:10 PM EDT [facility] Comment: This test was developed and its performance characteristics determined by [facility]. It has not been cleared or approved by the Food and Drug Administration. Interpretation for Anti-Nimo-1, Vscs-TNA-0yeqkb, Anti-MDA-5, Anti-NXP-2, Anti-PM/Scl-100, Anti-SS-A 52 kD, Anti-U1 JAVA SOFTWARE ENGINEER: Negative: <20 Weak Positive: 20 - 39 Moderate Positive: 40 - 80 Strong Positive: >80 . Test Performed by: [facility] [address] [place] [address] Blood Venous blood specimen / Unknown Venipuncture / Unknown 05/13/2025 3:23 PM EDT 05/13/2025 3:23 PM EDT us Mayo Marley MD LAB BLOOD ORDERA BLES Final Result [facility] [address] [place] [address] * Creatine kinase (05/13/2025 3:23 PM EDT) Only the most recent of2 resultswithin the time period is included. Total CK 101 22 - 269 unit/L LAB CHEMISTRY METHOD 05/13/2025 7:04 PM EDT [facility] Blood Venous blood specimen / Unknown Venipuncture / Unknown 05/13/2025 3:23 PM EDT 05/13/2025 3:23 PM EDT Mayo Marley MD LAB BLOOD ORDERA BLES Final Result Performing Organization Address [facility]/ZIP Co de Phone Number [facility] [address] [place] [address], [place] [phone] * Interferon gamma interpretation (05/01/2025 3:30 PM EDT) [facility] Quantiferon Plus Interpretation Negative Negative LAB CHEMISTRY METHOD 05/03/2025 11:48 AM EDT [facility] Blood Venous blood specimen / Unknown Venipuncture / Unknown 05/01/2025 3:30 PM EDT 05/01/2025 3:30 PM EDT us Lani CALDERON LAB BLOOD ORDERABLES Final Re sult Performing Organization Address [facility]/ZIP Co de Phone Number [facility] [address] [place] [address], [place] [phone] * Interferon gamma antigen 2 (05/01/2025 3:30 PM EDT) Blood Venous blood specimen / Unknown Venipuncture / Unknown 05/01/2025 3:30 PM EDT 05/01/2025 3:30 PM EDT us Lani CALDERON LAB BLOOD ORDERABLES Final Re sult Performing Organization Address City/[facility]/ZIP Co de Phone Number [facility] [address] [place] [address], [place] [phone] * Interferon gamma antigen 1 (05/01/2025 3:30 PM EDT) Blood Venous blood specimen / Unknown Venipuncture / Unknown 05/01/2025 3:30 PM EDT 05/01/2025 3:30 PM EDT us Lani CALDERON LAB BLOOD ORDERABLES Final Re sult Performing Organization Address [facility] Co de Phone Number [facility] [address] [place] [address], * Interferon gamma mitogen (05/01/2025 3:30 PM EDT) Blood Venous blood specimen / Unknown Venipuncture / Unknown 05/01/2025 3:30 PM EDT 05/01/2025 3:30 PM EDT us Lani CALDERON LAB BLOOD ORDERABLES Final Re sult Performing Organization Address [facility] Co de Phone Number [facility] [address] [place] [address], * Interferon gamma NIL (05/01/2025 3:30 PM EDT) Blood Venous blood specimen / Unknown Venipuncture / Unknown 05/01/2025 3:30 PM EDT 05/01/2025 3:30 PM EDT us Lani CALDERON LAB BLOOD ORDERABLES Final Re sult Performing Organization Address [facility] de Phone Number [facility] [address] [place] [address], * Cyclic citrullinated peptide, IgG and IgA (05/01/2025 3:30 PM EDT) CCP AB Quant 10 <20 Units LAB CHEMISTRY METHOD 05/05/2025 11:46 AM EDT [facility] Cyclic Citrullinated Peptide (CCP) Antibody Negative Negative LAB CHEMISTRY METHOD 05/05/2025 11:46 AM EDT [facility] Blood Venous blood specimen / Unknown Venipuncture / Unknown 05/01/2025 3:30 PM EDT 05/01/2025 3:30 PM EDT Mayo Marley MD LAB BLOOD ORDERA BLES Final Result Performing Organization Address [facility]/ZIP Co de Phone Number [facility] [address] [place] [address], [place] [phone] * Helicobacter pylori breath test (05/01/2025 3:30 PM EDT) [facility] H Pylori Breath Test Negative Negative LAB CHEMISTRY METHOD 05/02/2025 8:41 AM EDT [facility] Breath Oral cavity structure / Unknown Non-blood Collection / Unknown 05/01/2025 3:30 PM EDT 05/01/2025 3:30 PM EDT L[facility] BODY FLUIDS AND STOOLS OR DERABLES Final Result Performing Organization Address [facility] Co de Phone Number [facility] [address] [place] [address], [place] [phone] * Rheumatoid factor (05/01/2025 3:30 PM EDT) [facility] Rheumatoid Factor <10.0 <15.0 I Unit/mL LAB CHEMISTRY METHOD 05/01/2025 7:00 PM EDT [facility] Blood Venous blood specimen / Unknown Venipuncture / Unknown 05/01/2025 3:30 PM EDT 05/01/2025 3:30 PM EDT Mayo Marley MD LAB BLOOD ORDERA BLES Final Result Performing Organization Address City/[facility]/ZIP Co de Phone Number [facility] [address] [place] [address], [place] [phone] * Magnesium (05/01/2025 3:30 PM EDT) [facility] Magnesium 2.2 1.9 - 2.6 mg/dL LAB CHEMISTRY METHOD 05/01/2025 7:00 PM EDT [facility] Blood Venous blood specimen / Unknown Venipuncture / Unknown 05/01/2025 3:30 PM EDT 05/01/2025 3:30 PM EDT Mayo Marley MD LAB BLOOD ORDERA BLES Final Result Performing Organization Address [facility]/ZIP Co de Phone Number [facility] [address] [place] [address], [place] [phone] * Hemoglobin A1c (05/01/2025 3:30 PM EDT) [facility] Hemoglobin A1C 5.3 <6.5 % LAB CHEMISTRY METHOD 05/01/2025 9:50 PM EDT [facility] Mean Bld Glu Estim. 105 mg/dL LAB CHEMISTRY METHOD 05/01/2025 9:50 PM EDT [facility] Blood Venous blood specimen / Unknown Venipuncture / Unknown 05/01/2025 3:30 PM EDT 05/01/2025 3:30 PM EDT Mayo Marley MD LAB BLOOD ORDERA BLES Final Result [facility] [address] [place] [address], [place] [phone] * Vitamin B12 (05/01/2025 3:30 PM EDT) [facility] Vitamin B-12 405 250 - 900 pcg/mL LAB CHEMISTRY METHOD 05/01/2025 7:24 PM EDT [facility] Blood Venous blood specimen / Unknown Venipuncture / Unknown 05/01/2025 3:30 PM EDT 05/01/2025 3:30 PM EDT Mayo Marley MD LAB BLOOD ORDERA BLES Final Result [facility] [address] [place] [address], [place] [phone] * Lipid panel with reflex to direct LDL (01/08/2025 1:17 PM EDT) Cholesterol 164 0 - 200 mg/dL LAB CHEMISTRY METHOD 01/08/2025 5:43 PM EDT [facility] Triglycerides 64 0 - 150 mg/dL LAB CHEMISTRY METHOD 01/08/2025 5:43 PM EDT [facility] HDL 53 >=40 mg/dL LAB CHEMISTRY METHOD 01/08/2025 5:43 PM EDT [facility] LDL Calculated 98 0 - 100 mg/dL LAB CHEMISTRY METHOD 01/08/2025 5:43 PM EDT [facility] VLDL Cholesterol Nakul 12.8 mg/dL LAB CHEMISTRY METHOD 01/08/2025 5:43 PM EDT [facility] Non HDL Chol. (LDL+VLDL) 111 <145 mg/dL LAB CHEMISTRY METHOD 01/08/2025 5:43 PM EDT [facility] Chol/HDL Ratio 3.1 0.0 - 4.4 LAB CHEMISTRY METHOD 01/08/2025 5:43 PM EDT [facility] Blood Venous blood specimen / Unknown Venipuncture / Unknown 01/08/2025 1:17 PM EDT 01/08/2025 1:17 PM EDT Lani CALDERON LAB BLOOD ORDERABLES Final Re sult [facility] [address] [place] [address], [place] [phone] * Hm Cervical Cancer Screening: HPV (05/27/2024) Pathologist [facility] Cervical Cancer Screening: HPV positive,a bstracted Historical Provider HEALTH MAINTENANCE Final Result * HIV Screening (04/05/2021) [facility] HIV Screening abstracted Historical Provider HEALTH MAINTENANCE Final Result * Hepatitis C Screening (04/05/2021) [facility] Hepatitis C Screening abstracted Historical Provider HEALTH MAINTENANCE Final Result from Last 3 Months or Most Recently Relevant to Health Maintenance Insurance [facility] [employer] Care Teams Nurse Ldr Relationship Specialty Start Date End Date Mayo Marley MD [address] [facility], [place] PCP - General Internal Medicine 05/09/22
--- OUTSIDE RECORDS SUMMARY | 2025-06-16 10:09 | XMS_ITS | Clinical Summary ---
Author Organization [facility] Address [address] [place] [address] Care Team Providers Care Psychological Assistant Name Role Phone Mayo Marley MD Primary [...] age to complete this topic Care Teams Psychological Assistant Relationship Specialty Start Date End Date Mayo Marley MD [address] [place] [address] PCP - General 07/05/22
--- OUTSIDE RECORDS SUMMARY | 2025-06-16 10:09 | XMS_ITS | Clinical Summary ---
Author Organization [employer] Address [address] [place] [address] Care Team Providers Care Vacuum Frame Operator Name Role Phone Unavailable Primary Care Provider [...] COVID-19 Vaccine (1 - 2023-2 5 season) 2025 Influenza Vaccine (#1) 2025 Zoster Vaccines (1 [...]
--- OUTSIDE RECORDS SUMMARY | 2025-06-16 10:09 | XMS_ITS | Encounter Summary ---
Author Organization [facility] Address [address] [place] [address] Care Team Providers Care Hospice Volunteer Coordinator Name Role Phone Unavailable Primary Care Provider [...]
== END 2025-06-16 10:07 | disposition home or self-care (01) ==
LOC: HO.HSM 08:54
PROVIDERS: PCP Family Medicine; Visit Provider Nurse Practitioner
DX: G43.709 Chronic migraine without aura, not intractable, without status migrainosus (principal)
CPT/HCPCS: 99204

== ENCOUNTER → 2025-06-16 08:54 | Outpatient (BNVA) | payer OTHER, SELFPAY | PROVIDERS: PCP Family Medicine; Visit Provider Nurse Practitioner | DX: G43.709 Chronic migraine without aura, not intractable, without status migrainosus (principal) | CPT/HCPCS: 99202 ==

== ENCOUNTER 2025-07-07 06:26 | Outpatient (REF) | payer OTHER, SELFPAY ==
--- NOTE | ~2025-07-07 | FL_ITS ---
EXAMINATION: FL GUIDANCE ONLY HISTORY: M46.1 - Sacroiliitis, not elsewhere classified COMPARISON: None available. TECHNIQUE: Fluoroscopy time: 17.9 seconds. Cumulative Dose: 8.5054 mGy. DAP: 3.6997 Gycm2 Images: 4. FINDINGS: Fluoroscopic spot films of the pelvis demonstrate needles and contrast material in the regions of the bilateral sacroiliac joints. FL/FL guidance in treatment room IMPRESSION: Fluoroscopy during procedure. Please see procedure report for additional information. Electronically signed by: Brian Mast MD 07/07/2025 03:48 PM EDT
--- OUTSIDE RECORDS SUMMARY | 2025-07-07 06:29 | XMS_ITS | Clinical Summary ---
Author Organization [address] Address [address] [place] [phone] Phone Care Team Providers Care Mat Repairer Name Role Phone Mayo Marley MD Primary [...] or chew. 90 capsule 1 025 Active cyclobenzaprine (FLEXERIL) 5 mg tablet TAKE 1 TABLET BY MOUTH AT BEDTIME NEEDED FOR MUSCLE SPASMS. 30 tablet 2 Active meloxicam (MOBIC) 7.5 mg tablet Take 1 tablet (7.5 mg total) by mouth 1 (one) time each day if needed for moderate pain. 30 tablet 2 025 Active meloxicam (MOBIC) 7.5 mg tablet TAKE 1 TABLET (7.5 MG TOTAL) BY MOUTH 1 (ONE) TIME EACH DAY IF NEEDED FOR MODERATE PAIN. 30 tablet 025 2024 Discontinued cyclobenzaprine (FLEXERIL) 5 mg tablet TAKE 1 TABLET BY MOUTH AT BEDTIME NEEDED FOR MUSCLE SPASMS. 30 tablet 025 2024 Discontinued Active Problems Problem Noted [...] abscess underlying. Heavy menses due to IUD ([facility] V24) 11/18/2020 Overview (06/25/2024): Symptomatic anemia Hgb 11/16 6.7 Transfused 1u PRBCs at Infusion Center 11/17 Insomnia 12/08/2015 Anxiety 11/21/2014 Encounters Date Type Department Care Team Description 06/09/2025 Telephone Adult Medicine [address] [phone] Mayo Marley MD 05/01/2025 2:00 PM EDT Office Visit Adult Medicine [address] [phone] Mayo Marley MD Left wrist pain (Primary Dx); Neuropathy; Chronic midline low back pain without sciatica 04/27/2025 Telephone Adult Medicine [address] [phone] Mayo Marley MD 04/24/2025 Telephone Adult Medicine [address] [phone] Mayo Marley MD from Last 3 Months Immunizations Immunization Administration Dates Next Due DTaP (Infanrix) 6wks to less than 7yo ,01/22/1995,03/24/1994,12/23,1993 [id number]-[id number] (Pentacel) 2mo to less than 5yo 12/23/1997,03/24/1995,03/24/1994,10/25 HPV, Quadrivalent 05/03/2012, 8,07/02/2007,04/23 Hepatitis B (Sigfmwt-G-Znesx , Recombivax HB-Adult) 19yo and older 08/06/2024,03/05/2024,01/30/2024,07/13,05/03/2012 [...] for your loved ones. For example, child attendant or elderly care for an older adult? [...] Date Recorded What is your living situation? Unrecognized valu e 01/08/2025 Comments Unknown Sex and Gender Information [...] Team (Late st Contact Info) Description 07/14/2025 1:30 PM EDT Office Visit Adult Medicine [address] [phone] Lani Harrison PA [address] [place] [address] Health Maintenance Due Date Last Done Comments [...] Annual physical exam HM HPV Routine 05/27/2024 HEPATITIS C SCREENING Routine 04/05/2021 HIV SCREENING Routine 04/05/2021 from Last 3 Months or Most Recently Relevant to Health Maintenance Results * (ABNORMAL) Myositis panel 3 (05/13/2025 3:23 PM EDT) Nimo-1 Ab <20 <20 Units 06/04/2025 8:[address] [facility] [address] Ab Negative Negative 06/04/2025 8:10 PM EDT [facility] Comment: This test was developed and its performance characteristics determined by [facility]. It has not been cleared or approved [...] approved by the Food and Drug Administration. ME-2 Ab Weak Positive(A) Negative 06/04/2025 8:10 PM [...] approved by the Food and Drug Administration. Anti-U1-IMAGING AIDE Ab <20 <20 Units 06/04/2025 8:10 PM [...] the Food and Drug Administration. Fibrillarin (U3 IMAGING AIDE) Ab Negative Negative 06/04/2025 8:10 PM EDT [facility] Comment: This test was developed and its performance characteristics determined by [facility]. It has not been cleared or approved by the Food and Drug Administration. Interpretation for Anti-Nimo-1, Hcyb-JBJ-[id number], Anti-MDA-5, Anti-NXP-2, Anti-PM/Scl-100, Anti-SS-A 52 kD, Anti-U1 IMAGING AIDE: Negative: <20 Weak Positive: 20 - 39 Moderate Positive: 40 - 80 Strong Positive: >80 . Test Performed by: [facility] [place] [address] Blood Venous blood specimen / Unknown Venipuncture / Unknown 05/13/2025 3:23 PM EDT 05/13/2025 3:23 PM EDT us Mayo Marley MD LAB BLOOD ORDERA BLES Final Result [facility] [address] [place] [address] * Creatine kinase (05/13/2025 3:23 PM EDT) Only the most recent of2 resultswithin the time period is included. Total CK 101 22 - 269 unit/L LAB CHEMISTRY METHOD 05/13/2025 7:04 PM EDT [facility] Blood Venous blood specimen / Unknown Venipuncture / Unknown 05/13/2025 3:23 PM EDT 05/13/2025 3:23 PM EDT Mayo Marley MD LAB BLOOD ORDERA BLES Final Result Performing Organization Address City/[facility]/ZIP Co de Phone Number [facility] [address] [place] [address], [place] [phone] * Interferon gamma interpretation (05/01/2025 3:30 PM EDT) [facility] Quantiferon Plus Interpretation Negative Negative LAB CHEMISTRY METHOD 05/03/2025 11:48 AM EDT [facility] Blood Venous blood specimen / Unknown Venipuncture / Unknown 05/01/2025 3:30 PM EDT 05/01/2025 3:30 PM EDT us Lani CALDERON LAB BLOOD ORDERABLES Final Re sult Performing Organization Address City[facility]/ZIP Co de Phone Number [facility] [address] [place] [address], [place] [phone] * Interferon gamma antigen 2 (05/01/2025 3:30 PM EDT) Blood Venous blood specimen / Unknown Venipuncture / Unknown 05/01/2025 3:30 PM EDT 05/01/2025 3:30 PM EDT us Lani CALDERON LAB BLOOD ORDERABLES Final Re sult [facility] [address] [place] [address], [place] [phone] * Interferon gamma antigen 1 (05/01/2025 3:30 PM EDT) Blood Venous blood specimen / Unknown Venipuncture / Unknown 05/01/2025 3:30 PM EDT 05/01/2025 3:30 PM EDT us Lani CALDERON LAB BLOOD ORDERABLES Final Re sult Performing Organization Address [facility] Co de Phone Number [facility] [address] [place] [address], * Interferon gamma mitogen (05/01/2025 3:30 PM EDT) Blood Venous blood specimen / Unknown Venipuncture / Unknown 05/01/2025 3:30 PM EDT 05/01/2025 3:30 PM EDT us Lani CALDERON LAB BLOOD ORDERABLES Final Re sult Performing Organization Address [facility] Co de Phone Number [facility] [address] [place] [address], * Interferon gamma NIL (05/01/2025 3:30 PM EDT) Blood Venous blood specimen / Unknown Venipuncture / Unknown 05/01/2025 3:30 PM EDT 05/01/2025 3:30 PM EDT us Lani CALDERON LAB BLOOD ORDERABLES Final Re sult Performing Organization Address [facility] de Phone Number [facility] [address] [place] [address], * Cyclic citrullinated peptide, IgG and IgA (05/01/2025 3:30 PM EDT) CCP AB Quant 10 <20 Units LAB CHEMISTRY METHOD 05/05/2025 11:46 AM EDT [facility] Cyclic Citrullinated Peptide (CCP) Antibody Negative Negative LAB CHEMISTRY METHOD 05/05/2025 11:46 AM EDT [facility] Blood Venous blood specimen / Unknown Venipuncture / Unknown 05/01/2025 3:30 PM EDT 05/01/2025 3:30 PM EDT Mayo Marley MD LAB BLOOD ORDERA BLES Final Result Performing Organization Address [facility]/ZIP Co de Phone Number [facility] [address] [place] [address], [place] [phone] * Helicobacter pylori breath test (05/01/2025 3:30 PM EDT) [facility] H Pylori Breath Test Negative Negative LAB CHEMISTRY METHOD 05/02/2025 8:41 AM EDT [facility] Breath Oral cavity structure / Unknown Non-blood Collection / Unknown 05/01/2025 3:30 PM EDT 05/01/2025 3:30 PM EDT L[facility] BODY FLUIDS AND STOOLS OR DERABLES Final Result Performing Organization Address [facility] Co de Phone Number [facility] [address] [place] [address], [place] [phone] * Rheumatoid factor (05/01/2025 3:30 PM EDT) [facility] Rheumatoid Factor <10.0 <15.0 I Unit/mL LAB CHEMISTRY METHOD 05/01/2025 7:00 PM EDT [facility] Blood Venous blood specimen / Unknown Venipuncture / Unknown 05/01/2025 3:30 PM EDT 05/01/2025 3:30 PM EDT Mayo Marley MD LAB BLOOD ORDERA BLES Final Result Performing Organization Address [facility]/ZIP Co de Phone Number [facility] [address] [place] [address], [place] [phone] * Magnesium (05/01/2025 3:30 PM EDT) [facility] Magnesium 2.2 1.9 - 2.6 mg/dL LAB CHEMISTRY METHOD 05/01/2025 7:00 PM EDT [facility] Blood Venous blood specimen / Unknown Venipuncture / Unknown 05/01/2025 3:30 PM EDT 05/01/2025 3:30 PM EDT Mayo Marley MD LAB BLOOD ORDERA BLES Final Result Performing Organization Address [facility]/ZIP Co de Phone Number [facility] [address] [place] [address], [place] [phone] * Hemoglobin A1c (05/01/2025 3:30 PM EDT) Pathologist [facility] Hemoglobin A1C 5.3 <6.5 % LAB CHEMISTRY METHOD 05/01/2025 9:50 PM EDT [facility] Mean Bld Glu Estim. 105 mg/dL LAB CHEMISTRY METHOD 05/01/2025 9:50 PM EDT [facility] Blood Venous blood specimen / Unknown Venipuncture / Unknown 05/01/2025 3:30 PM EDT 05/01/2025 3:30 PM EDT Mayo Marley MD LAB BLOOD ORDERA BLES Final Result [facility] [address] [place] [address], [place] [phone] * Vitamin B12 (05/01/2025 3:30 PM EDT) Vitamin B-12 405 250 - 900 pcg/mL LAB CHEMISTRY METHOD 05/01/2025 7:24 PM EDT [facility] Blood Venous blood specimen / Unknown Venipuncture / Unknown 05/01/2025 3:30 PM EDT 05/01/2025 3:30 PM EDT us Mayo Marley MD LAB BLOOD ORDERA BLES Final Result [facility] [address] [place] [address], [place] [phone] * Lipid panel with reflex to direct LDL (01/08/2025 1:17 PM EDT) Cholesterol 164 0 - 200 mg/dL LAB CHEMISTRY METHOD 01/08/2025 5:43 PM EDT [facility] Triglycerides 64 0 - 150 mg/dL LAB CHEMISTRY METHOD 01/08/2025 5:43 PM EDT [facility] HDL 53 >=40 mg/dL LAB CHEMISTRY METHOD 01/08/2025 5:43 PM EDT [facility] LDL Calculated 98 0 - 100 mg/dL LAB CHEMISTRY METHOD 01/08/2025 5:43 PM EDT [facility] VLDL Cholesterol Nakul 12.8 mg/dL LAB CHEMISTRY METHOD 01/08/2025 5:43 PM EDT [facility] Non HDL Chol. (LDL+VLDL) 111 <145 mg/dL LAB CHEMISTRY METHOD 01/08/2025 5:43 PM EDT [facility] Chol/HDL Ratio 3.1 0.0 - 4.4 LAB CHEMISTRY METHOD 01/08/2025 5:43 PM EDT [facility] Blood Venous blood specimen / Unknown Venipuncture / Unknown 01/08/2025 1:17 PM EDT 01/08/2025 1:17 PM EDT L[facility] LAB BLOOD ORDERABLES Final Re sult [facility] [address] [place] [address], [place] [phone] * Hm Cervical Cancer Screening: HPV (05/27/2024) [facility] Cervical Cancer Screening: HPV positive,a bstracted Historical Provider HEALTH MAINTENANCE Final Result * HIV Screening (04/05/2021) [facility] HIV Screening abstracted Historical Provider HEALTH MAINTENANCE Final Result * Hepatitis C Screening (04/05/2021) [facility] Hepatitis C Screening abstracted Historical Provider HEALTH MAINTENANCE Final Result from Last 3 Months or Most Recently Relevant to Health Maintenance Insurance [facility] Care Teams Mat Repairer Relationship Specialty Start Date End Date Mayo Marley MD [address] [facility], [place] PCP - General Internal Medicine 05/09/22
--- OUTSIDE RECORDS SUMMARY | 2025-07-07 06:29 | XMS_ITS | Clinical Summary ---
Author Organization [facility] Address [address] [place] [address] Care Team Providers Care Kosher Dietary Service Supervisor Name Role Phone Mayo Marley MD Primary [...] age to complete this topic Care Teams Kosher Dietary Service Supervisor Relationship Specialty Start Date End Date Mayo Marley MD [address] [place] [address] PCP - General 07/05/22
== END 2025-07-07 06:27 | disposition home or self-care (01) ==
LOC: CF 06:26
PROVIDERS: Visit Provider Anesthesiology
DX: M46.1 Sacroiliitis, not elsewhere classified (principal); M53.3 Sacrococcygeal disorders, not elsewhere classified; M99.04 Segmental and somatic dysfunction of sacral region
CPT/HCPCS: 27096; J2003; J2795; J3301; Q9967

== ENCOUNTER 2025-07-07 14:40 | Outpatient (AMB) | payer OTHER, SELFPAY ==
[2025-07-07 14:51] VITALS: BP 131/81; PULSE 103; RESP 16; O2SAT 100; BMI 34.1
--- NOTE | 2025-07-07 14:51 | MHC.OFFVIS ---
Vital Signs 07/07/25 14:51 07/07/25 15:11 Height 5 ft 5 in Weight 205 lb BMI 34.1 BP 131/81 129/80 Blood Pressure Location Lt brachial Lt brachial Position Sitting Sitting Respiration 16 16 Pulse 103 H 95 Pulse Source Pulse Oximeter Pulse Oximeter Pulse Oximetry (%) 100 99 Oxygen Delivery Method Room Air Room Air Intake Visit Reasons: Bilateral Therapeutic SIJ Injections/ Ativan Allergies diphtheria,pertussis (acellular),te (From Boostrix Tdap) Allergy (Unknown, Verified 06/16/25 09:06) Unknown [facility] Medical History (Updated 06/16/25 @ 10:10 by Marsha Renee CNP) ADHD Insomnia Anxiety Iron deficiency Asthma Migraine Social History (Updated 06/12/25 @ 08:09 by Huan Caballero [facility]) Alcohol intake: current Patient Tobacco Use Status: Never used Tobacco Physical Exam Vital Signs: Last Vital Signs Pulse 95 07/07/25 15:11 Resp 16 07/07/25 15:11 BP 129/80 07/07/25 15:11 Pulse Ox 99 07/07/25 15:11 Oxygen Delivery Method Room Air 07/07/25 15:11 BMI result Body Mass Index 34.1 Assessment & Plan Assessment & Plan (1) Sacroiliac joint pain: Code(s): M53.3 - Sacrococcygeal disorders, not elsewhere classified Category: Medical (2) Somatic dysfunction of both sacroiliac joints: Code(s): M99.04 - Segmental and somatic dysfunction of sacral region Category: Medical (3) Sacroiliitis: Code(s): M46.1 - Sacroiliitis, not elsewhere classified Category: Medical Plan Bilateral therapeutic sacroiliac joint injection Informed consent was explained thoroughly to the patient.? All questions about benefits and risks for the procedure were answered. Patient came to the operating room and was positioned prone on the operating table with the pillow under the abdomen. The lower back and buttocks of the patient were prepped with ChloraPrep prepped and draped with sterile utility towels.? Sterilely draped C-arm was brought over the operating field and sq picture of patient's pelvis was demonstrated on the screen.? For the right joint tilting C-arm contralateral to the site of the joint the most posterior portion of the joints was superimposed with anterior silhouette of the joint.? Skin was injected in the projection of the joint slightly medial to the location of the joint with 25 gauge 1/2 inch needle using local lidocaine 2% . After that 22 gauge 3 and 1/2 inch needle was driven to the right joint in tunnel vision fashion.? When needle entered the joint capsule injection of the contrast was performed demonstrating intra-articular and minimally periarticular spread of the contrast.? After that 5 cc. of ropivacaine 0.5% mixed with Kenalog 40 mg was injected in the joint. After that procedure was repeated on the left side in mirroring fashion. Total dose of Kenalog was 80 mg Upon completion of the injections the needle was removed and Band-Aid was applied.? Upon completion of the injection patient was taken outside of the operating room to the recovery room where recovered uneventfully. Orders: Orders FL guidance in treatment room Today M46.1 - Sacroiliitis, not elsewhere classified Medications: New lorazepam (Ativan) Take 30 minutes prior to arrival to procedure 1 mg PO ONCE 1 tab 0RF anxiety Coding Level of Care Code Procedure Only Diagnoses Sacroiliac joint pain M53.3 Somatic dysfunction of both sacroiliac joints M99.04 Sacroiliitis M46.1
[2025-07-07 15:11] VITALS: BP 129/80; PULSE 95; RESP 16; O2SAT 99
--- OUTSIDE RECORDS SUMMARY | 2025-07-07 17:33 | XMS_ITS | Encounter Summary ---
Author Organization [employer] [facility] Address [address] [place] [address] Care Team Providers Care Wharf Labourer Name Role Phone Unavailable Primary Care Provider [...]
--- OUTSIDE RECORDS SUMMARY | 2025-07-07 17:33 | XMS_ITS | Clinical Summary ---
Author Organization [employer] Address [address] [place] [address] Care Team Providers Care General Ledger Accountant Name Role Phone Unavailable Primary Care Provider [...]
--- OUTSIDE RECORDS SUMMARY | 2025-07-07 17:33 | XMS_ITS | Clinical Summary ---
Author Organization [address] Address [address] [place] [phone] Phone Care Team Providers Care Orthopedic Assistant Name Role Phone Mayo Marley MD [...] abscess underlying. Heavy menses due to IUD ([facility] V24) 11/18/2020 Overview (06/25/2024): Symptomatic anemia Hgb 11/16 6.7 Transfused 1u PRBCs at Infusion [facility] 11/17 Insomnia 12/08/2015 Anxiety 11/21/2014 Encounters Date Type Department Care Team Description 06/09/2025 Telephone Adult Medicine [address] [phone] Mayo Marley MD 05/01/2025 2:00 PM EDT Office Visit Adult Medicine [address] [phone] Mayo Marley MD Left wrist pain (Primary Dx); Neuropathy; Chronic midline low back pain without sciatica 04/27/2025 Telephone Adult Medicine [address] [phone] Mayo Marley MD 04/24/2025 Telephone Adult Medicine [address] [phone] Mayo Marley MD from Last 3 Months Immunizations Immunization Administration Dates Next Due DTaP (Infanrix) 6wks to less than 7yo ,01/22/1995,03/24/1994,12/23,1993 HBgS-ZFW-CWC (Pentacel) 2mo to less than 5yo 12/23/1997,03/24/1995,03/24/1994,10/25 HPV, Quadrivalent 05/03/2012, 8,07/02/2007,04/23 Hepatitis B (Mfexych-U-Jiwwc , Recombivax HB-Adult) 19yo and older 08/06/2024,03/05/2024,01/30/2024,07/13,05/03/2012 [...] for your loved ones. For example, child care supervisor or elderly care for an older adult? [...] 1:30 PM EDT Office Visit Adult Medicine [address] [phone] Lani Harrison PA [address] [place] [address] Health Maintenance Due Date Last Done Comments [...] developed and its performance characteristics determined by [facility]. It has not been cleared or approved [...] approved by the Food and Drug Administration. LA-2 Ab Weak Positive(A) Negative 06/04/2025 8:10 PM [...] approved by the Food and Drug Administration. Anti-U1-MANAGER OF TRANSPORTATION Ab <20 <20 Units 06/04/2025 8:10 PM [...] the Food and Drug Administration. Fibrillarin (U3 MANAGER OF TRANSPORTATION) Ab Negative Negative 06/04/2025 8:10 PM EDT [facility] Comment: This test was developed and its performance characteristics determined by [facility]. It has not been cleared or approved by the Food and Drug Administration. Interpretation for Anti-Nimo-1, Cttg-EAV-8rxloq, Anti-MDA-5, Anti-NXP-2, Anti-PM/Scl-100, Anti-SS-A 52 kD, Anti-U1 MANAGER OF TRANSPORTATION: Negative: <20 Weak Positive: 20 - 39 Moderate Positive: 40 - 80 Strong Positive: >80 . Test Performed by: [facility] [place] [address] Blood Venous blood specimen / Unknown Venipuncture / Unknown 05/13/2025 3:23 PM EDT 05/13/2025 3:23 PM EDT us Mayo Marley MD LAB BLOOD ORDERA BLES Final Result [facility] [address] [place] [address] * Creatine kinase (05/13/2025 3:23 PM EDT) Only the most recent of2 resultswithin the time period is included. Total CK 101 22 - 269 unit/L LAB CHEMISTRY METHOD 05/13/2025 7:[address] [facility] Blood Venous blood specimen / Unknown Venipuncture / Unknown 05/13/2025 3:23 PM EDT 05/13/2025 3:23 PM EDT Mayo Marley MD LAB BLOOD ORDERA BLES Final Result Performing Organization Address City/[facility]/ZIP Co de Phone Number [facility] [address] [place] [address], [place] [phone] * Interferon gamma interpretation (05/01/2025 3:30 PM EDT) [facility] Quantiferon Plus Interpretation Negative Negative LAB CHEMISTRY METHOD 05/03/2025 11:[address] [facility] Blood Venous blood specimen / Unknown Venipuncture / Unknown 05/01/2025 3:30 PM EDT 05/01/2025 3:30 PM EDT us Lani CALDERON LAB BLOOD ORDERABLES Final Re sult Performing Organization Address City/[facility]/ZIP Co de Phone Number [facility] [address] [place] [address], [place] [phone] * Interferon gamma antigen 2 (05/01/2025 3:30 PM EDT) Blood Venous blood specimen / Unknown Venipuncture / Unknown 05/01/2025 3:30 PM EDT 05/01/2025 3:30 PM EDT us Lani CALDERON LAB BLOOD ORDERABLES Final Re sult [facility] [address] [place] [address], [place] [phone] * Interferon gamma antigen 1 (05/01/2025 3:30 PM EDT) Blood Venous blood specimen / Unknown Venipuncture / Unknown 05/01/2025 3:30 PM EDT 05/01/2025 3:30 PM EDT us Lani CALDERON LAB BLOOD ORDERABLES Final Re sult Performing Organization Address [facility] Co de Phone Number [facility] [address] [place] [address], * Interferon gamma mitogen (05/01/2025 3:30 PM EDT) Blood Venous blood specimen / Unknown Venipuncture / Unknown 05/01/2025 3:30 PM EDT 05/01/2025 3:30 PM EDT us Lani CALDERON LAB BLOOD ORDERABLES Final Re sult Performing Organization Address [facility] Co de Phone Number [facility] [address] [place] [address], * Interferon gamma NIL (05/01/2025 3:30 PM EDT) Blood Venous blood specimen / Unknown Venipuncture / Unknown 05/01/2025 3:30 PM EDT 05/01/2025 3:30 PM EDT us Lani CALDERON LAB BLOOD ORDERABLES Final Re sult Performing Organization Address [facility] de Phone Number [facility] [address] [place] [address], * Cyclic citrullinated peptide, IgG and IgA (05/01/2025 3:30 PM EDT) CCP AB Quant 10 <20 Units LAB CHEMISTRY METHOD 05/05/2025 11:[address] [facility] Cyclic Citrullinated Peptide (CCP) Antibody Negative Negative LAB CHEMISTRY METHOD 05/05/2025 11:[address] [facility] Blood Venous blood specimen / Unknown Venipuncture / Unknown 05/01/2025 3:30 PM EDT 05/01/2025 3:30 PM EDT Mayo Marley MD LAB BLOOD ORDERA BLES Final Result Performing Organization Address [facility]/ZIP Co de Phone Number [facility] [address] [place] [address], [place] [phone] * Helicobacter pylori breath test (05/01/2025 3:30 PM EDT) [facility] H Pylori Breath Test Negative Negative LAB CHEMISTRY METHOD 05/02/2025 8:[address] [facility] Breath Oral cavity structure / Unknown Non-blood Collection / Unknown 05/01/2025 3:30 PM EDT 05/01/2025 3:30 PM EDT [facility] BODY FLUIDS AND STOOLS OR DERABLES Final Result Performing Organization Address [facility] Co de Phone Number [facility] [address] [place] [address], [place] [phone] * Rheumatoid factor (05/01/2025 3:30 PM EDT) [facility] Rheumatoid Factor <10.0 <15.0 I Unit/mL LAB CHEMISTRY METHOD 05/01/2025 7:[address] [facility] Blood Venous blood specimen / Unknown Venipuncture / Unknown 05/01/2025 3:30 PM EDT 05/01/2025 3:30 PM EDT Mayo Marley MD LAB BLOOD ORDERA BLES Final Result Performing Organization Address City/[facility]/ZIP Co de Phone Number [facility] [address] [place] [address], [place] [phone] * Magnesium (05/01/2025 3:30 PM EDT) [facility] Magnesium 2.2 1.9 - 2.6 mg/dL LAB CHEMISTRY METHOD 05/01/2025 7:[address] [facility] Blood Venous blood specimen / Unknown Venipuncture / Unknown 05/01/2025 3:30 PM EDT 05/01/2025 3:30 PM EDT Mayo Marley MD LAB BLOOD ORDERA BLES Final Result Performing Organization Address City/[facility]/ZIP Co de Phone Number [facility] [address] [place] [address], [place] [phone] * Hemoglobin A1c (05/01/2025 3:30 PM EDT) Pathologist [facility] Hemoglobin A1C 5.3 <6.5 % LAB CHEMISTRY METHOD 05/01/2025 9:[address] [facility] Mean Bld Glu Estim. 105 mg/dL LAB CHEMISTRY METHOD 05/01/2025 9:[address] [facility] Blood Venous blood specimen / Unknown Venipuncture / Unknown 05/01/2025 3:30 PM EDT 05/01/2025 3:30 PM EDT Mayo Marley MD LAB BLOOD ORDERA BLES Final Result [facility] [address] [place] [address], [place] [phone] * Vitamin B12 (05/01/2025 3:30 PM EDT) Vitamin B-12 405 250 - 900 pcg/mL LAB CHEMISTRY METHOD 05/01/2025 7:[address] [facility] Blood Venous blood specimen / Unknown Venipuncture / Unknown 05/01/2025 3:30 PM EDT 05/01/2025 3:30 PM EDT us Mayo Marley MD LAB BLOOD ORDERA BLES Final Result [facility] [address] [place] [address], [place] [phone] * Lipid panel with reflex to direct LDL (01/08/2025 1:17 PM EDT) Cholesterol 164 0 - 200 mg/dL LAB CHEMISTRY METHOD 01/08/2025 5:[address] [facility] Triglycerides 64 0 - 150 mg/dL LAB CHEMISTRY METHOD 01/08/2025 5:[address] [facility] HDL 53 >=40 mg/dL LAB CHEMISTRY METHOD 01/08/2025 5:[address] [facility] LDL Calculated 98 0 - 100 mg/dL LAB CHEMISTRY METHOD 01/08/2025 5:[address] [facility] VLDL Cholesterol Nakul 12.8 mg/dL LAB CHEMISTRY METHOD 01/08/2025 5:[address] [facility] Non HDL Chol. (LDL+VLDL) 111 <145 mg/dL LAB CHEMISTRY METHOD 01/08/2025 5:[address] [facility] Chol/HDL Ratio 3.1 0.0 - 4.4 LAB CHEMISTRY METHOD 01/08/2025 5:[address] [facility] Blood Venous blood specimen / Unknown Venipuncture / Unknown 01/08/2025 1:17 PM EDT 01/08/2025 1:17 PM EDT L[facility] LAB BLOOD ORDERABLES Final Re sult [facility] [address] [place] [address], [place] [phone] * Hm Cervical Cancer Screening: HPV (05/27/2024) HM Cervical Cancer Screening: HPV positive,a bstracted Historical Provider HEALTH MAINTENANCE Final Result * HIV Screening (04/05/2021) [facility] HIV Screening abstracted Historical Provider HEALTH MAINTENANCE Final Result * Hepatitis C Screening (04/05/2021) [facility] Hepatitis C Screening abstracted Historical Provider HEALTH MAINTENANCE Final Result from Last 3 Months or Most Recently Relevant to Health Maintenance Insurance [employer] Care Teams Orthopedic Assistant Relationship Specialty Start Date End Date Mayo Marley MD [address] [facility], [place] PCP - General Internal Medicine 05/09/22
--- OUTSIDE RECORDS SUMMARY | 2025-07-07 17:33 | XMS_ITS | Clinical Summary ---
Author Organization [facility] Address [address] [place] [address] Care Team Providers Care Facilities Assistant Name Role Phone Mayo Marley MD [...] age to complete this topic Care Teams Facilities Assistant Relationship Specialty Start Date End Date Mayo Marley MD [address] [place] [address] PCP - General 07/05/22
== END 2025-07-07 15:09 | disposition home or self-care (01) ==
LOC: HO.PMCPRC 14:40
PROVIDERS: PCP Family Medicine; Visit Provider Anesthesiology
DX: M53.3 Sacrococcygeal disorders, not elsewhere classified (principal); M99.04 Segmental and somatic dysfunction of sacral region; M46.1 Sacroiliitis, not elsewhere classified
CPT/HCPCS: 27096

== ENCOUNTER 2025-08-05 11:30 | Outpatient (AMB) | payer OTHER, SELFPAY ==
--- NOTE | 2025-08-05 11:30 | MHC.OFFVIS ---
Vital Signs 08/05/25 11:36 Height 5 ft 5 in Weight 205 lb BMI 34.1 BP 122/80 Blood Pressure Location Rt brachial Position Sitting Respiration 16 Pulse 84 Pulse Source Pulse Oximeter Pulse Oximetry (%) 99 Oxygen Delivery Method Room Air Intake Visit Reasons: 2m Waterproofing Mixer Required: No Allergies diphtheria,pertussis (acellular),te (From Boostrix Tdap) Allergy (Unknown, Verified 08/05/25 11:37) Unknown HPI Comments Details: Mauro is a 29-year-old female patient with a past medical history of migraine, anxiety, asthma, heavy menses, hypothyroidism, insomnia, and iron-deficiency anemia who is here today for a headache follow up. We had our initial visit together on 06/16/2025 at which time we discussed her headaches which started in her 20s but more recently becoming more frequent and intense. She described headaches approximately 4-5 times per week but could last up to 3 days or more. In between her headaches she had a sensation of ?headache hangover?. She was often not fully recovering from her symptoms or having clear breaks in her migraines cycles. Her migraine headaches were accompanied by nausea, vomiting, dizziness, blurry vision, sensitivity to light and sound. Her pain was typically located to the temporal areas but tended to favor the right side described as a sharp and pulsating/throbbing pain reaching sometimes 10/10. The sumatriptan has not been helpful in relieving her migraines. She has been getting injections through pain management however she was no longer receiving them and it has been approximately 3 years since she had gone to pain management. She also had tried cyclobenzaprine with no clear benefit. At the time of her last visit, I switched her sumatriptan to rizatriptan but unfortunately again she had no benefit with the rizatriptan. I eventually switched her over to eletriptan and instructed her to take it with naproxen however she again saw no clear benefit with this regimen. She was started on Aimovig for prevention but unfortunately with many barriers in getting the prescription due to some confusion with the pharmacy and, she only took her 1st dose of Aimovig about a week ago. Since this time, she has not seen any change to her headaches but does however note that over the course of the last week she has been extremely constipated much more than her baseline. She does take iron supplementation and attribute some of her constipation to this however she did note that after the injection her constipation became much worse. Past medication trials: Topiramate- No significant improvement in the past Cyclobenzaprine- No benefit Sumatriptan- No benefit (cannot take propranolol d/t hx asthma) Aimovig-significant constipation Prior workup: MRI was completed at [facility] about 1 year ago. She reports that the study was normal. [facility] Medical History (Updated 06/16/25 @ 10:10 by Marsha Renee CNP) ADHD Insomnia Anxiety Iron deficiency Asthma Migraine Social History (Updated 06/12/25 @ 08:09 by Huan Caballero [facility]) Alcohol intake: current Patient Tobacco Use Status: Never used Tobacco Review of Systems Const All systems reviewed & are unremarkable except as noted in HPI and below Physical Exam Vital Signs: Last Vital Signs Pulse 84 08/05/25 11:36 Resp 16 08/05/25 11:36 BP 122/80 08/05/25 11:36 Pulse Ox 99 08/05/25 11:36 Oxygen Delivery Method Room Air 08/05/25 11:36 BMI result Body Mass Index 34.1 Const General: cooperative, healthy appearing, comfortable and no acute distress Nutritional Appearance: well nourished Orientation/consciousness: patient oriented x3 Limitations: no limitations HEENT Head: Yes normal to inspection and Yes normocephalic Eyes Other: No opthalmoscope available in office during visit General: appearance normal, both eyes and all related structures Visual Baron: normal visual baron by confrontation Alignment and Position: alignment normal Periorbital: periorbital findings normal Eyelids: Yes eyelids normal Conjunctivae: conjunctivae normal Sclerae: sclerae normal Back/Spine/Pelvis Other: R>L occipital notch tenderness. Bilateral trapezius tightness. Neuro General: patient oriented x3 Cranial nerves: Yes CN's II-XII intact bilaterally Cognition (Neuro): normal cognition Gait exam (Neuro): Normal gait present Motor exam (neuro): no tremor noted Sensory Exam: double simultaneous stimulation for sensation normal Romberg Test: Negative Pupils: Normal pupillary reactivity/response: bilateral Psych Appearance: grossly normal Mental Status: mental status grossly normal Speech and movement: Normal speech and movement present and Clear speech present Affect: normal affect Attitude: cooperative Thought process: Normal thought process present Thought content: Normal thought content present Insight: Good insight present (Psych) Judgement: Good judgement present (Psych) Assessment & Plan Assessment & Plan (1) Chronic migraine without aura without status migrainosus, not intractable: Code(s): G43.709 - Chronic migraine without aura, not intractable, without status migrainosus Category: Medical (2) Myofascial pain: Code(s): M79.18 - Myalgia, other site Category: Medical (3) Cervicalgia: Code(s): M54.2 - Cervicalgia Category: Medical Plan Mauro is a 29-year-old female patient with a past medical history of migraine, anxiety, asthma, heavy menses, hypothyroidism, insomnia, and iron-deficiency anemia who is here today for a headache follow up. At the time of our last visit I recommended a trial of Aimovig. Unfortunately took quite some time for this medication to be processed through pharmacy though even still, with starting in a couple of weeks ago she has had a significant worsening of her existing constipation. I am advising that we stop Aimovig and move to another therapy. We discussed other options today including Ajovy or Emgality however there may be still a small risk for constipation with these medications. In addition, she does have a significant degree of myofascial tension and therefore we also discussed Botox therapy and she would like to proceed with a trial Botox therapy for prevention of chronic migraine. For abortive therapy, she has now at this point tried 3 different triptan including sumatriptan, rizatriptan, and eletriptan. I did provide her today with the samples of Nurtec and she will let me know how this goes. Unfortunately however she has had a migraine for approximately 4 days now and I will give her a 5 day course of Depakote to break her cycle. She was advised to reserve the Nurtec for a time when she has a clear start of her headache and can take it early on in the headache cycle. -Trial of Nurtec. Samples given. Patient will update me on how this works for her and we can prescribe if she has good outcomes -Depakote 250 mg extended release nightly for 5 days to assist with cycle breaking -Start a trial for Botox therapy indicated for treatment of chronic migraine Medications: New onabotulinumtoxinA (Botox) 155 units IM ONCE 1 ea 3RF 12 weeks divalproex (Depakote) 250 mg PO BEDTIME 5 tabs 0RF Changed From erenumab-aooe (Aimovig Autoinjector) 70 mg subcut QMONTH 1 mL 5RF G43.709 - Chronic migraine without aura, not intractable, without status migrainosus To erenumab-aooe (Aimovig Autoinjector) Diagnosis code: G43.7 70 mg subcut QMONTH 1 mL 5RF G43.709 - Chronic migraine without aura, not intractable, without status migrainosus Coding Level of Care Code Est Pt Level 4 (75264) Diagnoses Chronic migraine without aura without status migrainosus, not intractable G43.709 Myofascial pain M79.18 Cervicalgia M54.2
[2025-08-05 11:36] VITALS: BP 122/80; PULSE 84; RESP 16; O2SAT 99; BMI 34.1
--- OUTSIDE RECORDS SUMMARY | 2025-08-05 14:21 | XMS_ITS | Clinical Summary ---
Author Organization [address] Address [address] [place] [phone] Phone Care Team Providers Care Chief Innovation Officer Name Role Phone Mayo Marley MD Primary Care Pr ovider Allergies Active Allergy Reactions Criticality Noted Date Comments Diphth,Pertus(Acell),Teta nus 05/20/2024 Rash and a lump over injection site Medications ferrous sulfate 325 mg (65 mg elemental iron) tablet Take 1 tablet by mouth daily. X 1 week then increase bid with meals 10/13/19 22 Active levonorgestreL (MIRENA) 21 mcg/24 hr (8 yrs) 52 mg IUD 1 Each by Intrauterine route Once. 01/19/20 21 026 Active montelukast (SINGULAIR) 10 mg tablet Take 1 Tablet by mouth at bedtime. 06/11/20 23 Active guanFACINE (TENEX) 1 mg tablet Take 1 tablet (1 mg total) by mouth at bedtime. Active amphetamine-dextro amphetamine (AdderalL) 10 mg tablet Take 1 tablet (10 mg total) by mouth 2 (two) times a day. Active albuterol HFA (PROAIR HFA ; PROVENTIL HFA ; VENTOLIN HFA) 90 mcg/actuation inhalerIndications :Mild intermittent asthma without complication Inhale 2 puffs by mouth every 4 (four) hours if needed for wheezing or shortness of breath (cough). 6.7 g 2 01/09/20 25 Active levothyroxine (SYNTHROID, LEVOTHROID) 25 mcg tabletIndications: Other specified hypothyroidism Take 1 tablet (25 mcg total) by mouth 1 (one) time each day before breakfast. 90 tablet 1 04/14/20 25 Active SUMAtriptan (IMITREX) 50 mg tablet Take 1 tablet (50 mg total) by mouth 1 (one) time if needed for migraine. May repeat dose once in 2 hours if no relief. Do not exceed 2 doses in 24 hours. 12 tablet 1 04/14/20 25 Active omeprazole (PriLOSEC) [address] capsule Take 1 capsule (40 mg total) by mouth 1 (one) time each day. Do not crush or chew. 90 capsule 1 05/14/20 25 Active cyclobenzaprine (FLEXERIL) 5 mg tablet TAKE 1 TABLET BY MOUTH AT BEDTIME NEEDED FOR MUSCLE SPASMS. 30 tablet 2 07/02/20 25 Active meloxicam (MOBIC) 7.5 mg tablet Take 1 tablet (7.5 mg total) by mouth 1 (one) time each day if needed for moderate pain. 30 tablet 2 07/02/20 25 Active Active Problems Problem Noted Date Diagnosed [...] abscess underlying. Heavy menses due to IUD ([facility] V24) 11/18/2020 Overview (06/25/2024): Symptomatic anemia Hgb 11/16 6.7 Transfused 1u PRBCs at Infusion Center 11/17 Insomnia 12/08/2015 Anxiety 11/21/2014 Encounters Date Type Department Care Team Description 06/09/2025 Telephone Adult Medicine [address] [phone] Mayo Marley MD from Last 3 Months Immunizations Immunization Administration Dates Next Due DTaP (Infanrix) 6wks to less than 7yo ,01/22/1995,03/24/1994,12/23,1993 [id number] (Pentacel) 2mo to less than 5yo 12/23/1997,03/24/1995,03/24/1994,10/25 HPV, Quadrivalent 05/03/2012, 8,07/02/2007,04/23 Hepatitis B (Sbihhmm-I-Cydqx , Recombivax HB-Adult) 19yo and older 08/06/2024,03/05/2024,01/30/2024,07/13,05/03/2012 [...] your loved ones. For example, child care education coordinator or elderly care for an older adult? [...] 05/01/2025 2:19 PM EDT Plan of Treatment Health Maintenance Due [...] Routine 05/13/2025 3:23 PM EDT Elevated CK LIPID PANEL WITH REFLEX TO DIRECT LDL Routine 01/08/2025 1:17 PM EDT Annual physical exam HPV Routine 05/27/2024 HEPATITIS C SCREENING Routine [...] approved by the Food and Drug Administration. DE-2 Ab Weak Positive(A) Negative 06/04/2025 8:10 PM [...] approved by the Food and Drug Administration. Anti-U1-SPECIAL WEAPONS UNIT OFFICER Ab <20 <20 Units 06/04/2025 8:10 PM [...] the Food and Drug Administration. Fibrillarin (U3 SPECIAL WEAPONS UNIT OFFICER) Ab Negative Negative 06/04/2025 8:10 PM EDT [facility] Comment: This test was developed and its performance characteristics determined by [facility]. It has not been cleared or approved by the Food and Drug Administration. Interpretation for Anti-Nimo-1, [id number], Anti-MDA-5, Anti-NXP-2, Anti-PM/Scl-100, Anti-SS-A 52 kD, Anti-U1 SPECIAL WEAPONS UNIT OFFICER: Negative: <20 Weak Positive: 20 - 39 Moderate Positive: 40 - 80 Strong Positive: >80 . Test Performed by: [facility] [address] [place] [address] Blood Venous blood specimen / Unknown Venipuncture / Unknown 05/13/2025 3:23 PM EDT 05/13/2025 3:23 PM EDT us Mayo Marley MD LAB BLOOD ORDERA BLES Final Result [facility] [address] [place] [address] * Creatine kinase (05/13/2025 3:23 PM EDT) [facility] Total CK 101 22 - 269 unit/L LAB CHEMISTRY METHOD 05/13/2025 7:04 PM EDT [facility] Blood Venous blood specimen / Unknown Venipuncture / Unknown 05/13/2025 3:23 PM EDT 05/13/2025 3:23 PM EDT us Mayo Marley MD LAB BLOOD ORDERA BLES Final Result [facility] [address] [place] [address], [place] [phone] * Lipid panel with reflex to direct LDL (01/08/2025 1:17 PM EDT) [facility] Cholesterol 164 0 - 200 mg/dL LAB [...] Final Re sult [facility] [address] [place] [address], * Cervical Cancer Screening: HPV (05/27/2024) [facility] Cervical Cancer Screening: HPV positive,a bstracted [facility] Provider HEALTH MAINTENANCE Final Result * HIV Screening (04/05/2021) [facility] HIV Screening abstracted [facility] Provider HEALTH MAINTENANCE Final Result * Hepatitis C Screening (04/05/2021) [facility] Hepatitis C Screening abstracted [facility] Provider HEALTH MAINTENANCE Final Result from Last 3 Months or Most Recently Relevant to Health Maintenance Insurance [facility] [employer] Care Teams Chief Innovation Officer Relationship Specialty Start Date End Date Mayo Marley MD [address] [place] [address] PCP - General Internal Medicine 05/09/22
--- OUTSIDE RECORDS SUMMARY | 2025-08-05 14:21 | XMS_ITS | Encounter Summary ---
Author Organization [employer] [facility] Address [address] [facility] [address] [place] [address] Care Team Providers Care Tool Crib Clerk Name Role Phone Unavailable Primary Care Provider [...]
--- OUTSIDE RECORDS SUMMARY | 2025-08-05 14:21 | XMS_ITS | Clinical Summary ---
Author Organization [employer] Address [address] [facility] [address] [place] [address] Care Team Providers Care Creche Attendant Name Role Phone Unavailable Primary Care Provider [...]
--- OUTSIDE RECORDS SUMMARY | 2025-08-05 14:21 | XMS_ITS | Clinical Summary ---
Author Organization [facility] Address [address] [place] [address] Care Team Providers Care Irrigator Overhead Name Role Phone Mayo Marley MD Primary [...] age to complete this topic Care Teams Irrigator Overhead Relationship Specialty Start Date End Date Mayo Marley MD [address] [place] [address] PCP - General 07/05/22
== END 2025-08-05 12:49 | disposition home or self-care (01) ==
LOC: HO.HSM 11:30
PROVIDERS: PCP Family Medicine; Visit Provider Nurse Practitioner
DX: G43.709 Chronic migraine without aura, not intractable, without status migrainosus (principal); M79.18 Myalgia, other site; M54.2 Cervicalgia
CPT/HCPCS: 99214

== ENCOUNTER → 2025-08-05 11:30 | Outpatient (BNVA) | payer OTHER, SELFPAY | PROVIDERS: PCP Family Medicine; Visit Provider Nurse Practitioner | DX: G43.709 Chronic migraine without aura, not intractable, without status migrainosus (principal); M54.2 Cervicalgia; M79.18 Myalgia, other site | CPT/HCPCS: 99212 ==

== ENCOUNTER 2025-08-06 13:01 | Outpatient (AMB) | payer OTHER, SELFPAY ==
--- NOTE | 2025-08-06 13:07 | A.OFFVIS_ITS ---
Vital Signs 08/06/25 13:11 Height 5 ft 5 in Weight 205 lb BMI 34.1 BP 120/80 Blood Pressure Location Rt brachial Position Sitting Respiration 16 Pulse 71 Pulse Source Pulse Oximeter Pulse Oximetry (%) 98 Oxygen Delivery Method Room Air Intake Visit Reasons: Botox Sales Research Analyst Required: No Allergies diphtheria,pertussis (acellular),te (From Boostrix Tdap) Allergy (Unknown, Verified 08/06/25 13:12) Unknown HPI Comments Details: Mauro is a 29-year-old female patient with a past medical history of migraine, anxiety, asthma, heavy menses, hypothyroidism, insomnia, and iron-deficiency anemia who is here today for her first round of botox therapy indicated for the treatment of chronic migraine. We had our initial visit together on 06/16/2025 at which time we discussed her headaches which started in her 20s but more recently becoming more frequent and intense. She described headaches approximately 4-5 times per week but could last up to 3 days or more. In between her headaches she had a sensation of ?headache hangover?. She was often not fully recovering from her symptoms or having clear breaks in her migraines cycles. Her migraine headaches were accompanied by nausea, vomiting, dizziness, blurry vision, sensitivity to light and sound. Her pain was typically located to the temporal areas but tended to favor the right side described as a sharp and pulsating/throbbing pain reaching sometimes 10/10. The sumatriptan has not been helpful in relieving her migraines. She has been getting injections through pain management however she was no longer receiving them and it has been approximately 3 years since she had gone to pain management. She also had tried cyclobenzaprine with no clear benefit. At the time of her initial visit, I switched her sumatriptan to rizatriptan but unfortunately again she had no benefit with the rizatriptan. I eventually switched her over to eletriptan and instructed her to take it with naproxen however she again saw no clear benefit with this regimen. She was started on Aimovig for prevention but unfortunately with many barriers in getting the prescription due to some confusion with the pharmacy and, she only took her 1st dose of Aimovig about a week ago. Since this time, she has not seen any change to her headaches but does however note that over the course of the last week she has been extremely constipated much more than her baseline. She does take iron supplementation and attribute some of her constipation to this however she did note that after the injection her constipation became much worse. We discussed some options yesterday as an alternative to the Aimovig. She opted for a trial of Botox therapy. I also prescribed depakote 250mg at bedtime for 5 days in efforts to break her current headache cycle. I also provided her with [facility] samples in efforts to optimize her acute therapy. She will let me know how this goes. Past medication trials: Topiramate- No significant improvement in the past Cyclobenzaprine- No benefit Sumatriptan- No benefit (cannot take propranolol d/t hx asthma) Aimovig-significant constipation Prior workup: MRI was completed at [facility] about 1 year ago. She reports that the study was normal. [facility] Medical History (Updated 06/16/25 @ 10:10 by Marsha Renee CNP) ADHD Insomnia Anxiety Iron deficiency Asthma Migraine Social History (Updated 06/12/25 @ 08:09 by Huan Caballero [facility]) Alcohol intake: current Patient Tobacco Use Status: Never used Tobacco Review of Systems Const All systems reviewed & are unremarkable except as noted in HPI and below Physical Exam Vital Signs: Last Vital Signs Pulse 71 08/06/25 13:11 Resp 16 08/06/25 13:11 BP 120/80 08/06/25 13:11 Pulse Ox 98 08/06/25 13:11 Oxygen Delivery Method Room Air 08/06/25 13:11 BMI result Body Mass Index 34.1 Const General: cooperative, healthy appearing, comfortable and no acute distress Nutritional Appearance: well nourished Orientation/consciousness: patient oriented x3 Limitations: no limitations HEENT Head: Yes normal to inspection and Yes normocephalic Eyes Other: No opthalmoscope available in office during visit General: appearance normal, both eyes and all related structures Visual Baron: normal visual baron by confrontation Alignment and Position: alignment normal Periorbital: periorbital findings normal Eyelids: Yes eyelids normal Conjunctivae: conjunctivae normal Sclerae: sclerae normal Back/Spine/Pelvis Other: R>L occipital notch tenderness. Bilateral trapezius tightness. Neuro General: patient oriented x3 Cranial nerves: Yes CN's II-XII intact bilaterally Cognition (Neuro): normal cognition Gait exam (Neuro): Normal gait present Motor exam (neuro): no tremor noted Sensory Exam: double simultaneous stimulation for sensation normal Romberg Test: Negative Pupils: Normal pupillary reactivity/response: bilateral Psych Appearance: grossly normal Mental Status: mental status grossly normal Speech and movement: Normal speech and movement present and Clear speech present Affect: normal affect Attitude: cooperative Thought process: Normal thought process present Thought content: Normal thought content present Insight: Good insight present (Psych) Judgement: Good judgement present (Psych) Office Procedures Botulinum toxin Injection Details: Procedure: Botox therapy for Chronic Migraine Laterally: Bilateral Indications: Chronic Migraine Medications: Botox 155units How the med was supplied: Buy and Bill Timeout performed before procedure, patient identified with full name and date of . Risks and benefits of procedure reviewed, as well as site verified, sonsent signed, allergies reviewed, and medication reconsilliatino reviewed/completed. Following universal hygiene protocol and PREEMPT protocol, Botox 200unit vial was reconstituted with 4cc normal saline for a final concentration of 5units/0.1cc. The areas of injection were cleansed with alcohol. A 30g 0.5 needle was used to administer the injections as below. Procerus: 5units midline Mailroom Clerk: 5units left and 5units right Frontalis: 10units left and 10units right Temporalis: 20units left and 20units right Occipitalis:15units left and 15units right Cervical paraspinal 10units left and 10units right Trapezius 15units left and 15units right No noted paresthesias during injection 155units of Botox used and 45units wasted per PREEMPT protocol Complications: None Patient was observed for 15 minutes after the procedure and discharged home with instructions to apply ice to their head as needed. [address]68 - Migraine Procedure code (CPT) selection complete Office Meds onabotulinumtoxinA 200 unit solution for injection Performing Provider: Marsha Renee CNP Performing Location: [facility] Administered by: Marsha Renee CNP on 08/06/25 13:42 Dose Route Admin Location Dispensed Lot Number Expiration Date [facility] Unloader 155 unit IM 200 units [id number] 09/23/27 3010-3605-73 ALLERGA N/BOTOX Total Dispensed Waste 200 units 22.5 % Assessment & Plan Assessment & Plan (1) Chronic migraine without aura without status migrainosus, not intractable: Code(s): G43.709 - Chronic migraine without aura, not intractable, without status migrainosus Category: Medical Plan Mauro is a 29-year-old female patient with a past medical history of migraine, anxiety, asthma, heavy menses, hypothyroidism, insomnia, and iron-deficiency anemia who is here today for her first round of botox therapy indicated for the treatment of chronic migraine. Her procedure went well without any complications. She will still plan to complete the course of Depakote 250 mg nightly for 5 days to break this current headache cycle and trial the Nurtec once this headache cycle is broken. -follow up in 12 weeks for next round of Botox therapy -take Depakote 250 mg nightly for 5 days to help break current headache cycle -try Nurtec 75 mg as needed which can be prescribed if it is effective Orders: Orders AMB Botulinum toxin Injection Today G43.709 - Chronic migraine without aura, not intractable, without status migrainosus Medications: Refilled divalproex (Depakote) 250 mg PO BEDTIME 5 tabs 0RF Coding Level of Care Code Est Pt Level 1 (37999) Diagnoses Chronic migraine without aura without status migrainosus, not intractable G43.709 CPT Codes Botox Injection - Botox 3: 48603 - Migraine ([id number])
[2025-08-06 13:11] VITALS: BP 120/80; PULSE 71; RESP 16; O2SAT 98; BMI 34.1
--- OUTSIDE RECORDS SUMMARY | 2025-08-06 16:20 | XMS_ITS | Clinical Summary ---
Author Organization [facility] Address [address] [place] [address] Care Team Providers Care Director Data Management Name Role Phone Mayo Marley MD Primary [...] age to complete this topic Care Teams Director Data Management Relationship Specialty Start Date End Date Mayo Marley MD [address] [place] [address] PCP - General 07/05/22
--- OUTSIDE RECORDS SUMMARY | 2025-08-06 16:20 | XMS_ITS | Clinical Summary ---
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 Heavy menses due to IUD ([facility] V24) 11/18/2020 Overview (06/25/2024): Symptomatic anemia Hgb 11/16 6.7 Transfused 1u PRBCs at Infusion Center 11/17 Insomnia 12/08/2015 Anxiety 11/21/2014 Encounters Date Type Department Care Team Description 06/09/2025 Telephone Adult Medicine [address] [phone] Mayo Marley MD from Last 3 Months Immunizations Immunization Administration Dates Next Due DTaP (Infanrix) 6wks to less than 7yo ,01/22/1995,03/24/1994,12/23,1993 WOiQ-TNB-GUQ (Pentacel) 2mo to less than 5yo 12/23/1997,03/24/1995,03/24/1994,10/25 HPV, Quadrivalent 05/03/2012, 8,07/02/2007,04/23 Hepatitis B (Swgrxzf-Z-Wevmi , Recombivax HB-Adult) 19yo and older 08/06/2024,03/05/2024,01/30/2024,07/13,05/03/2012 [...] for your loved ones. For example, child abuse worker or elderly care for an older adult? [...] approved by the Food and Drug Administration. [place]-2 Ab Weak Positive(A) Negative 06/04/2025 8:10 PM [...] approved by the Food and Drug Administration. Anti-U1-TOOL ANALYST Ab <20 <20 Units 06/04/2025 8:10 PM [...] the Food and Drug Administration. Fibrillarin (U3 TOOL ANALYST) Ab Negative Negative 06/04/2025 8:10 PM EDT [facility] Comment: This test was developed and its performance characteristics determined by [facility]. It has not been cleared or approved by the Food and Drug Administration. Interpretation for Anti-Nimo-1, Ifpw-VRI-3rkbcy, Anti-MDA-5, Anti-NXP-2, Anti-PM/Scl-100, Anti-SS-A 52 kD, Anti-U1 TOOL ANALYST: Negative: <20 Weak Positive: 20 - 39 Moderate Positive: 40 - 80 Strong Positive: >80 . Test Performed by: [facility] [address] [place] [address] Blood Venous blood specimen / Unknown Venipuncture / Unknown 05/13/2025 3:23 PM EDT 05/13/2025 3:23 PM EDT us Mayo Marley MD LAB BLOOD ORDERA BLES Final Result [facility] [address] [place] [address] * Creatine kinase (05/13/2025 3:23 PM EDT) [facility] Total CK 101 22 - 269 unit/L LAB CHEMISTRY METHOD 05/13/2025 7:[address] [facility] Blood Venous blood specimen / Unknown Venipuncture / Unknown 05/13/2025 3:23 PM EDT 05/13/2025 3:23 PM EDT us Mayo Marley MD LAB BLOOD ORDERA BLES Final Result [facility] [address] [place] [address], [place] [phone] * Lipid panel with reflex to direct LDL (01/08/2025 1:17 PM EDT) [facility] Cholesterol 164 0 - 200 mg/dL LAB [...] Re sult [facility] [address] [place] [address], * Cervical Cancer Screening: HPV (05/27/2024) [facility] Cervical Cancer Screening: HPV positive,a bstracted [facility] Provider HEALTH MAINTENANCE Final Result * HIV Screening (04/05/2021) [facility] HIV Screening abstracted [facility] Provider HEALTH MAINTENANCE Final Result * Hepatitis C Screening (04/05/2021) [facility] Hepatitis C Screening abstracted [facility] Provider HEALTH MAINTENANCE Final Result from Last 3 Months or Most Recently Relevant to Health Maintenance Insurance [facility] [employer] Care Teams Hide And Skin Processing Worker Relationship Specialty Start Date End Date Mayo Marley MD [address] [place] [address] PCP - General Internal Medicine 05/09/22
--- OUTSIDE RECORDS SUMMARY | 2025-08-06 16:20 | XMS_ITS | Encounter Summary ---
Author Organization [employer] [facility] Address [address] [facility] [address] [place] [address] Care Team Providers Care Negative Assembler Name Role Phone Unavailable Primary Care Provider [...]
--- OUTSIDE RECORDS SUMMARY | 2025-08-06 16:20 | XMS_ITS | Clinical Summary ---
Author Organization [employer] Address [address] [facility] [address] [place] [address] Care Team Providers Care Hollow Core Door Frame Assembler Name Role Phone Unavailable Primary Care [...]
== END 2025-08-06 13:37 | disposition home or self-care (01) ==
LOC: HO.HSM 13:02
PROVIDERS: PCP Family Medicine; Visit Provider Nurse Practitioner
DX: G43.709 Chronic migraine without aura, not intractable, without status migrainosus (principal)
CPT/HCPCS: 64615

== ENCOUNTER → 2025-08-06 13:01 | Outpatient (BNVA) | payer OTHER, SELFPAY | PROVIDERS: PCP Family Medicine; Visit Provider Nurse Practitioner | DX: G43.709 Chronic migraine without aura, not intractable, without status migrainosus (principal) | CPT/HCPCS: 64615; 99211; J0585 ==